=== PATIENT | male | born 1970 | race Caucasian/White ===

== ENCOUNTER → 2020-09-14 | Outpatient (CLI) | payer MEDICARE ==
--- NOTE | 2020-09-14 14:41 | CT ---
EXAMINATION TYPE: CT angio chest DATE OF EXAM: 09/14/2020 COMPARISON: None HISTORY: H/O thoracic aneurysm. CT DLP: 1040.90 mGycm CONTRAST: CTA thoracic aorta with 3-D reconstruction is performed and with IV Contrast, patient injected with 1 00ml mL of Isovue 370. Contrast CTA of the thoracic aorta was performed from the lung apex through the upper abdomen. 3D re construction imaging obtained at a separate workstation. CT Chest: THORACIC AORTA: Ascending thoracic aortic aneurysm measuring 4.2 cm AP dimension. The remainder of th e thoracic aorta including the aortic arch and descending thoracic aortic components are of normal ca liber. Mild atheromatous changes seen. There is no evidence for dissection or periaortic collection. LUNGS: The lungs are clear and free of infiltrate or atelectasis. No pulmonary nodule or mass is det ected. No pleural effusion or CT evidence of interstitial lung disease. MEDIASTINUM: No evidence for mediastinal hematoma. The heart is not enlarged. No evidence for med iastinal mass or adenopathy. HILAR STRUCTURES: No evidence for mass. No hilar adenopathy is appreciated. OTHER: No significant abnormality. IMPRESSION- Uncomplicated ascending thoracic aortic aneurysm.
== END | disposition home or self-care (01) ==
LOC: RADCTMAIN 13:33
PROVIDERS: ATTEND Family Medicine
DX: I71.2 Thoracic aortic aneurysm, without rupture (principal)
CPT/HCPCS: 71275; Q9967

== ENCOUNTER 2022-12-11 01:00 | Inpatient (IN) | payer MEDICARE ==
[2022-12-11] MEDS ORDERED: SODIUM CHLORIDE 0.9% 1,000 ML IV STA ×3 (01:25→03:23)
[2022-12-11 01:31] LABS: Glucose,Whole Blood 128 mg/dL (70-110)
--- NOTE | 2022-12-11 01:31 | ED ---
Neuro HPI - General Chief Complaint: Neuro Symptoms/Deficit Stated Complaint: Chest pain, Left side weakness Time Seen by Provider: 12/11/22 01:14 Source: patient, RN notes reviewed, old records reviewed Mode of arrival: wheelchair Limitations: altered mental status - History of Present Illness Is the patient presenting with stroke symptoms?: Yes Onset/Timin -: hour(s) Initial Comments: This is a 52-year-old male to the emergency department for evaluation. Family is at bedside helping with presentation of history of present illness the patient around 8:00 was having some significant diaphoresis when they were over family members house. Symptoms persisted and patient drove home patient states he got home was playing a video game on his phone and began to become very dizzy and felt use, pass out when he laid down. This brought patient to come to the emergency department and here in the ER is having difficulty with his speech and explaining his symptoms but he does not feel well. Patient does have history of valve replacement high blood pressure high cholesterol, patient also has history of aortic aneurysm Location: speech, dysarthria History of same: No Place: home Severity: mild Quality: weak Improves With: none Worsens With: none On Anticoagulants: Yes - Related Data Home Medications: Home Medications Medication Instructions Recorded Confirmed Sertraline [Zoloft] 200 mg PO DAILY@1800 12/11/22 12/11/22 Simvastatin [Zocor] 40 mg PO DAILY@1800 12/11/22 12/11/22 Previous Rx's Medication Instructions Recorded Aspirin 81 mg PO DAILY #30 tab 12/16/22 Metoprolol Tartrate [Lopressor] 25 mg PO BID-W/MEALS #60 tab 12/16/22 Warfarin [Coumadin] 1 mg PO DAILY #30 tablet 12/16/22 Warfarin [Coumadin] 10 mg PO DAILY@1800 #30 tab 12/16/22 lisinopriL [Zestril] 20 mg PO DAILY #30 tab 12/16/22 Allergies/Adverse Reactions: Allergies Allergy/AdvReac Type Severity Reaction Status Date / Time Penicillins Allergy Unknown Verified 12/11/22 07:54 Review of Systems ROS Statement: Those systems with pertinent positive or pertinent negative responses have been documented in the HPI. ROS Other: All systems not noted in ROS Statement are negative. General Exam - General Exam Comments Initial Comments: Diaphoretic Limitations: altered mental status, physical limitation General appearance: alert, in no apparent distress, anxious, lethargic, in d istress Head exam: Present: atraumatic, normocephalic, normal inspection Eye exam: Present: normal appearance, PERRL, EOMI. Absent: scleral icterus, conjunctival injection, periorbital swelling ENT exam: Present: normal exam, mucous membranes moist Neck exam: Present: normal inspection. Absent: tenderness, meningismus, lymphadenopathy Respiratory exam: Present: normal lung sounds bilaterally. Absent: respiratory distress, wheezes, rales, rhonchi, stridor Cardiovascular Exam: Present: regular rate, normal rhythm, normal heart sounds. Absent: systolic murmur, diastolic murmur, rubs, gallop, clicks GI/Abdominal exam: Present: soft, normal bowel sounds. Absent: distended, tenderness, guarding, rebound, rigid Extremities exam: Present: normal inspection, full ROM, normal capillary refill. Absent: tenderness, pedal edema, joint swelling, calf tenderness Back exam: Present: normal inspection Neurological exam: Present: alert, oriented X3, CN II-XII intact Psychiatric exam: Present: normal affect, normal mood Skin exam: Present: warm, dry, intact, normal color. Absent: rash Stroke MDM - Lab Data Result diagrams: 12/12/22 04:38 12/12/22 04:38 Lab Results 12/11/22 12/11/22 12/11/22 Range/Units 01:23 01:29 01:29 WBC 16.2 H (3.8-10.6) k/uL RBC 5.54 (4.30-5.90) m/uL Hgb 14.6 (13.0-17.5) gm/dL Hct 44.7 (39.0-53.0) % MCV 80.6 (80.0-100.0) fL MCH 26.4 (25.0-35.0) pg MCHC 32.8 (31.0-37.0) g/dL RDW 17.1 H (11.5-15.5) % Plt Count 261 (150-450) k/uL MPV 9.9 Neutrophils % 77 % Lymphocytes % 13 % Monocytes % 7 % Eosinophils % 1 % Basophils % 1 % Neutrophils # 12.4 H (1.3-7.7) k/uL Lymphocytes # 2.0 (1.0-4.8) k/uL Monocytes # 1.2 H (0-1.0) k/uL Eosinophils # 0.2 (0-0.7) k/uL Basophils # 0.1 (0-0.2) k/uL Hypochromasia Slight Anisocytosis Slight Microcytosis Slight PT 17.7 H (9.0-12.0) sec INR 1.8 H (<1.2) APTT 26.8 (22.0-30.0) sec Sodium (137-145) mmol/L Potassium (3.5-5.1) mmol/L Chloride (98-107) mmol/L Carbon Dioxide (22-30) mmol/L Anion Gap mmol/L BUN (9-20) mg/dL Creatinine (0.66-1.25) mg/dL Est GFR (CKD-EPI)AfAm (>60 ml/min/1.73 sqM) Est GFR (CKD-EPI)NonAf (>60 ml/min/1.73 sqM) Glucose (74-99) mg/dL POC Glucose (mg/dL) 128 H (70-110) mg/dL POC Glu Firmware Test Engineer ID Gary Willis Lactic Ac Sepsis Rflx Plasma Lactic Acid Turner (0.7-2.0) mmol/L Calcium (8.4-10.2) mg/dL Phosphorus (2.5-4.5) mg/dL Magnesium (1.6-2.3) mg/dL Total Bilirubin (0.2-1.3) mg/dL AST (17-59) U/L ALT (4-49) U/L Alkaline Phosphatase (38-126) U/L Troponin I (0.000-0.034) ng/mL NT-Pro-B Natriuret Pep pg/mL Total Protein (6.3-8.2) g/dL Albumin (3.5-5.0) g/dL Influenza Type A (PCR) (Not Detectd) Influenza Type B (PCR) (Not Detectd) RSV (PCR) (Not Detectd) SARS-CoV-2 (PCR) (Not Detectd) 12/11/22 12/11/22 12/11/22 Range/Units 01:29 01:29 01:29 WBC (3.8-10.6) k/uL RBC (4.30-5.90) m/uL Hgb (13.0-17.5) gm/dL Hct (39.0-53.0) % MCV (80.0-100.0) fL MCH (25.0-35.0) pg MCHC (31.0-37.0) g/dL RDW (11.5-15.5) % Plt Count (150-450) k/uL MPV Neutrophils % % Lymphocytes % % Monocytes % % Eosinophils % % Basophils % % Neutrophils # (1.3-7.7) k/uL Lymphocytes # (1.0-4.8) k/uL Monocytes # (0-1.0) k/uL Eosinophils # (0-0.7) k/uL Basophils # (0-0.2) k/uL Hypochromasia Anisocytosis Microcytosis PT (9.0-12.0) sec INR (<1.2) APTT (22.0-30.0) sec Sodium 139 (137-145) mmol/L Potassium 4.5 (3.5-5.1) mmol/L Chloride 104 (98-107) mmol/L Carbon Dioxide 21 L (22-30) mmol/L Anion Gap 14 mmol/L BUN 34 H (9-20) mg/dL Creatinine 2.17 H (0.66-1.25) mg/dL Est GFR (CKD-EPI)AfAm 39 (>60 ml/min/1.73 sqM) Est GFR (CKD-EPI)NonAf 34 (>60 ml/min/1.73 sqM) Glucose 140 H (74-99) mg/dL POC Glucose (mg/dL) (70-110) mg/dL POC Glu Firmware Test Engineer ID Lactic Ac Sepsis Rflx Plasma Lactic Acid Turner 2.1 H* (0.7-2.0) mmol/L Calcium 9.8 (8.4-10.2) mg/dL Phosphorus 5.1 H (2.5-4.5) mg/dL Magnesium 2.0 (1.6-2.3) mg/dL Total Bilirubin 0.5 (0.2-1.3) mg/dL AST 29 (17-59) U/L ALT 22 (4-49) U/L Alkaline Phosphatase 62 (38-126) U/L Troponin I 0.021 (0.000-0.034) ng/mL NT-Pro-B Natriuret Pep 353 pg/mL Total Protein 8.3 H (6.3-8.2) g/dL Albumin 4.9 (3.5-5.0) g/dL Influenza Type A (PCR) (Not Detectd) Influenza Type B (PCR) (Not Detectd) RSV (PCR) (Not Detectd) SARS-CoV-2 (PCR) (Not Detectd) 12/11/22 12/11/22 Range/Units 03:22 04:24 WBC (3.8-10.6) k/uL RBC (4.30-5.90) m/uL Hgb (13.0-17.5) gm/dL Hct (39.0-53.0) % MCV (80.0-100.0) fL MCH (25.0-35.0) pg MCHC (31.0-37.0) g/dL RDW (11.5-15.5) % Plt Count (150-450) k/uL MPV Neutrophils % % Lymphocytes % % Monocytes % % Eosinophils % % Basophils % % Neutrophils # (1.3-7.7) k/uL Lymphocytes # (1.0-4.8) k/uL Monocytes # (0-1.0) k/uL Eosinophils # (0-0.7) k/uL Basophils # (0-0.2) k/uL Hypochromasia Anisocytosis Microcytosis PT (9.0-12.0) sec INR (<1.2) APTT (22.0-30.0) sec Sodium (137-145) mmol/L Potassium (3.5-5.1) mmol/L Chloride (98-107) mmol/L Carbon Dioxide (22-30) mmol/L Anion Gap mmol/L BUN (9-20) mg/dL Creatinine (0.66-1.25) mg/dL Est GFR (CKD-EPI)AfAm (>60 ml/min/1.73 sqM) Est GFR (CKD-EPI)NonAf (>60 ml/min/1.73 sqM) Glucose (74-99) mg/dL POC Glucose (mg/dL) (70-110) mg/dL POC Glu Firmware Test Engineer ID Lactic Ac Sepsis Rflx Y Plasma Lactic Acid Turner (0.7-2.0) mmol/L Calcium (8.4-10.2) mg/dL Phosphorus (2.5-4.5) mg/dL Magnesium (1.6-2.3) mg/dL Total Bilirubin (0.2-1.3) mg/dL AST (17-59) U/L ALT (4-49) U/L Alkaline Phosphatase (38-126) U/L Troponin I (0.000-0.034) ng/mL NT-Pro-B Natriuret Pep pg/mL Total Protein (6.3-8.2) g/dL Albumin (3.5-5.0) g/dL Influenza Type A (PCR) Not Detected (Not Detectd) Influenza Type B (PCR) Not Detected (Not Detectd) RSV (PCR) Not Detected (Not Detectd) SARS-CoV-2 (PCR) Not Detected (Not Detectd) - NIH Stroke Scale 1a. Level of Consciousness: (0) alert 1b. LOC Questions: (0) answers correctly 1c. LOC Commands: (0) performs tasks correctly 2. Best Gaze: (0) normal 3. Visual: (0) no visual loss 4. Facial Palsy: (0) normal symmetrical movement 5a. Motor Arm Left: (0) no drift 5b. Motor Arm Right: (0) no drift 6a. Motor Leg Left: (0) no drift 6b. Motor Leg Right: (0) no drift 7. Limb Ataxia: (0) absent 8. Sensory: (0) normal 9. Best Language: (1) mild/moderate aphasia 10. Dysarthria: (1) mild/moderate dysarthria 11. Extinction/Inattention: (0) no abnormality - Thrombolytic Inclusion/Exclusion Thrombolytic Inclusion Criteria: Symptom Onset < 4.5 h - Medical Decision Making 52 Male to the emergency department for evaluation of a near syncopal event feels dizzy lightheaded with some mild slurred speech. Patient had normal imaging here in the ER and symptoms are significantly improved with aggressive fluid resuscitation. Patient states he still feels weak but improved, difficult to explain symptoms for the patient but denying any headache chest pain shortness breath or abdominal pain. Patient be admitted for continued observation, monitoring of troponin vital signs - Radiology Data Radiology results: report reviewed (CT brain CT had neck with CT angios chest or on negative for acute disease), image reviewed - EKG Data -: EKG Interpreted by Me (EKG is sinus 80 TX 191 QRS 101 QTC 377) EKG shows normal: sinus rhythm (EKG sinus bradycardia 59 TX 267 QRS 106 QTc 401) Past Medical History Past Medical History: GERD/Reflux, Hyperlipidemia, Hypertension Additional Past Medical History / Comment(s): DJD History of Any Multi-Drug Resistant Organisms: None Reported Past Surgical History: Adenoidectomy, Joint Replacement, Orthopedic Surgery Additional Past Surgical History / Comment(s): 09/17/15 Total L hip arthroplasty with cell saver. Other surgical HX: AORTIC VALVE REPLACEMENT, RT KNEE ARTHROSCOPY Past Anesthesia/Blood Transfusion Reactions: No Reported Reaction Past Psychological History: Anxiety, Depression Past Alcohol Use History: None Reported Past Drug Use History: None Reported - Past Family History Father Family Medical History: Diabetes Mellitus Additional Family Medical History / Comment(s): Father is 79 yrs old. Mother Family Medical History: Renal Disease Additional Family Medical History / Comment(s): Mother has a AICD. She is 78yrs old. Course Vital Signs 12/11/22 12/11/22 12/11/22 01:02 01:15 01:30 Temperature 98.0 F Pulse Rate 85 61 59 L Pulse Rate [ Commercial Construction Project Manager ] Respiratory 18 20 18 Rate Blood Pressure 96/60 71/35 68/43 Blood Pressure [Left Arm] O2 Sat by Pulse 97 96 96 Oximetry 12/11/22 12/11/22 12/11/22 01:37 01:44 01:45 Temperature Pulse Rate 54 L 59 L Pulse Rate [ Commercial Construction Project Manager ] Respiratory 18 14 14 Rate Blood Pressure 83/47 92/53 Blood Pressure [Left Arm] O2 Sat by Pulse 100 100 Oximetry 12/11/22 12/11/22 12/11/22 01:51 02:00 02:15 Temperature Pulse Rate 58 L 61 62 Pulse Rate [ Commercial Construction Project Manager ] Respiratory 14 18 18 Rate Blood Pressure 91/54 92/59 91/52 Blood Pressure [Left Arm] O2 Sat by Pulse 99 96 96 Oximetry 12/11/22 12/11/22 12/11/22 02:19 02:35 04:00 Temperature Pulse Rate 69 61 56 L Pulse Rate [ Commercial Construction Project Manager ] Respiratory 17 18 16 Rate Blood Pressure 116/48 120/56 115/65 Blood Pressure [Left Arm] O2 Sat by Pulse 100 100 97 Oximetry 12/11/22 12/11/22 12/11/22 05:00 06:00 07:30 Temperature Pulse Rate 56 L 56 L 62 Pulse Rate [ Commercial Construction Project Manager ] Respiratory 16 16 18 Rate Blood Pressure 122/75 112/66 113/59 Blood Pressure [Left Arm] O2 Sat by Pulse 97 97 96 Oximetry 12/11/22 12/11/22 12/11/22 13:04 14:48 15:39 Temperature 98.0 F Pulse Rate 58 L 64 Pulse Rate [ Commercial Construction Project Manager ] Respiratory 20 16 18 Rate Blood Pressure 103/62 111/67 Blood Pressure [Left Arm] O2 Sat by Pulse 98 99 Oximetry 12/11/22 12/11/22 12/11/22 17:40 18:14 19:28 Temperature 97.9 F Pulse Rate 65 72 67 Pulse Rate [ Commercial Construction Project Manager ] Respiratory 16 18 18 Rate Blood Pressure 123/70 115/88 106/54 Blood Pressure [Left Arm] O2 Sat by Pulse 98 96 Oximetry 12/11/22 12/12/22 12/12/22 21:00 00:00 04:00 Temperature 97.9 F 98.7 F 98.1 F Pulse Rate 64 85 62 Pulse Rate [ Commercial Construction Project Manager ] Respiratory 20 18 26 H Rate Blood Pressure 109/57 136/83 120/59 Blood Pressure [Left Arm] O2 Sat by Pulse 96 96 98 Oximetry 12/12/22 12/12/22 08:00 12:00 Temperature 98.6 F 97.9 F Pulse Rate Pulse Rate [ 73 57 L Commercial Construction Project Manager ] Respiratory 20 16 Rate Blood Pressure Blood Pressure 156/72 150/85 [Left Arm] O2 Sat by Pulse 98 96 Oximetry - Reevaluation(s) Reevaluation #1: 12/11/22 04:50 Medical record is reviewed 12/11/22 04:50 Code stroke prior to arrival 12/11/22 04:51 Patient is on Coumadin no TPA Reevaluation #2: 12/11/22 04:51 Patient symptoms continue to improve here in the ER blood pressure and heart rate Reevaluation #3: 12/11/22 04:51 Patient informed of results and questions answered Reevaluation #4: 12/11/22 04:51 Was pt. sent in by a medical professional or institution (, PA, MECHANICAL DESIGN DRAFTER, urgent care, hospital, or group home...) When possible be specific @ -no Did you speak to anyone other than the patient for history (EMS, parent, family, police, friend...)? What history was obtained from this source @ -no Did you review nursing and triage notes (agree or disagree)? Why? @ -agree Are old charts reviewed (outside hosp., previous admission, EMS record, old EKG, old radiological studies, urgent care reports/EKG's, group home records)? Report findings @ -yes Differential Diagnosis (chest pain, altered mental status, abdominal pain women, abdominal pain men, vaginal bleeding, weakness, fever, dyspnea, syncope, headache, dizziness, GI bleed, back pain, seizure, CVA, palpatations, mental he alth, musculoskeletal)? @ -prior EKG interpreted by me (3pts min.). @ -yes X-rays interpreted by me (1pt min.). @ -yes CT interpreted by me (1pt min.). @ -yes U/S interpreted by me (1pt. min.). @ -no What testing was considered but not performed or refused? (CT, X-rays, U/S, labs)? Why? @ -none What meds were considered but not given or refused? Why? @ -none Did you discuss the management of the patient with other professionals (professionals i.e. , PA, MECHANICAL DESIGN DRAFTER, lab, RT, psych nurse, older adult social work specialist, stud driver, teacher, front desk officer, casework specialist)? Give summary @ -no Was smoking cessation discussed for >3mins.? @ -no Was critical care preformed (if so, how long)? @ -no Were there social determinants of health that impacted care today? How? (Homelessness, low income, unemployed, alcoholism, drug addiction, transportation, low edu. Level, literacy, decrease access to med. care, usp, rehab)? @ -none Was there de-escalation of care discussed even if they declined (Discuss DNR or withdrawal of care, Hospice)? DNR status @ -no What co-morbidities impacted this encounter? (DM, HTN, Smoking, COPD, CAD, Cancer, CVA, ARF, Chemo, Hep., AIDS, mental health diagnosis, sleep apnea, morb id obesity)? @ -none Was patient admitted / discharged? Hospital course, mention meds given and rou te, prescriptions, significant lab abnormalities, going to OR and other pertinent info. @ - 52 Male to the emergency department for evaluation of a near syncopal event feels dizzy lightheaded with some mild slurred speech. Patient had normal imaging here in the ER and symptoms are significantly improved with aggressive fluid resuscitation. Patient states he still feels weak but improved, difficult to explain symptoms for the patient but denying any headache chest pain shortness breath or abdominal pain. Patient be admitted for continued observation, monitoring of troponin vital signs Admitted Undiagnosed new problem with uncertain prognosis? @ -no Drug Therapy requiring intensive monitoring for toxicity (Heparin, Nitro, Insulin, Cardizem)? @ -no Were any procedures done? @ -no Diagnosis/symptom? @ -Altered mental status, hypotension Acute, or Chronic, or Acute on Chronic? @ -Acute Uncomplicated (without systemic symptoms) or Complicated (systemic symptoms)? @ -Complicated Side effects of treatment? @ -no Exacerbation, Progression, or Severe Exacerbation? @ -exacerbation Poses a threat to life or bodily function? How? (Chest pain, USA, MN, pneumonia, PE, COPD, DKA, ARF, appy, cholecystitis, CVA, Diverticulitis, Homicidal, Suicidal, threat to staff... and all critical care pts) @ -yes severe hypotension Reevaluation #5: 12/11/22 04:51 Differential Syncope: Valvular disease, hypertrophic cardiomyopathy, pulmonary embolism, tamponade, tachycardia, bradycardia, MN, hypovolemia, hemorrhage, dissection, anemia, intracranial hemorrhage, seizure, hypoglycemia, carbon monoxide poisoning, this is not meant to be an all-inclusive list. - Consultations Consultation #1: [place] with sound who agrees to admit the patient Critical Care Time Critical Care Time: Yes Total Critical Care Time: 31 Disposition Clinical Impression: Weakness, Bradycardia, Hypotension, Near syncope Disposition: ADMITTED IP TO THIS HOSP Condition: Stable Is patient prescribed a controlled substance at d/c from ED?: No Time of Disposition: 04:45
[2022-12-11] MEDS ORDERED: NALOXONE 0.4 MG/ML 1 ML VIAL IVP STA (01:40)
[2022-12-11 01:44] LABS: Anisocytosis Slight; Basophils # (A) 0.1 k/uL (0-0.2); Basophils % (A) 1 %; Eosinophils # (A) 0.2 k/uL (0-0.7); Eosinophils % (A) 1 %; HCT 44.7 % (39.0-53.0); HGB 14.6 gm/dL (13.0-17.5); Hypochromasia Slight; Lymphocytes % (A) 13 %; MCH 26.4 pg (25.0-35.0); MCHC 32.8 g/dL (31.0-37.0); MCV 80.6 fL (80.0-100.0); Mean Platelet Volume 9.9; Microcytosis Slight; Monocytes # (A) 1.2 k/uL (0-1.0); Monocytes % (A) 7 %; Neutrophils # (A) 12.4 k/uL (1.3-7.7); Neutrophils % (A) 77 %; Platelet Count 261 k/uL (150-450); RBC 5.54 m/uL (4.30-5.90); RDW 17.1 % (11.5-15.5); WBC 16.2 k/uL (3.8-10.6)
[2022-12-11 01:52] LABS: INR 1.8 (<1.2); Partial Thromboplastin Time 26.8 sec (22.0-30.0); Prothrombin Time 17.7 sec (9.0-12.0)
--- NOTE | 2022-12-11 02:31 | CT ---
EXAM: CT Angiography Head With Intravenous Contrast CLINICAL HISTORY: ITS.REASON CT Reason: cva TECHNIQUE: Axial computed tomographic angiography images of the head with intravenous contrast. CTDI is 48.8 mGy and DLP is 1162 mGy-cm. This CT exam was performed using one or more of the following dose reduction techniques: automated exposure control, adjustment of the mA and/or kV according to patient size, and/or use of iterative reconstruction technique. MIP reconstructed images were created and reviewed. COMPARISON: No relevant prior studies available. FINDINGS: The dural venous sinuses are patent. Right internal carotid artery: No acute findings. Intracranial segment is patent with no significant stenosis. No aneurysm. Right anterior cerebral artery: Unremarkable. No occlusion or significant stenosis. No aneurysm. Right middle cerebral artery: Unremarkable. No occlusion or significant stenosis. No aneurysm. Right posterior cerebral artery: Unremarkable. No occlusion or significant stenosis. No aneurysm. Right vertebral artery: Unremarkable as visualized. Left internal carotid artery: No acute findings. Intracranial segment is patent with no significant stenosis. No aneurysm. Left anterior cerebral artery: Unremarkable. No occlusion or significant stenosis. No aneurysm. Left middle cerebral artery: Unremarkable. No occlusion or significant stenosis. No aneurysm. Left posterior cerebral artery: Unremarkable. No occlusion or significant stenosis. No aneurysm. Left vertebral artery: Unremarkable as visualized. Basilar artery: Unremarkable. No occlusion or significant stenosis. No aneurysm. IMPRESSION: Negative CT angiogram of the head. EXAM: CT Neck With Intravenous Contrast CLINICAL HISTORY: ITS.REASON CT Reason: cva TECHNIQUE: Routine carotid CT protocol was performed with intravenous contrast. NASCET criteria using the distal ICAs for comparison were used for evaluation of stenoses. CTDI is 19.7 mGy and DLP is 926 mGy-cm. This CT exam was performed using one or more of the following dose reduction techniques: automated exposure control, adjustment of the mA and/or kV according to patient size, and/or use of iterative reconstruction technique. COMPARISON: None. FINDINGS: VASCULATURE: The dural venous sinuses are widely patent. Right common carotid artery: Unremarkable. No occlusion or significant stenosis. No dissection. Right internal carotid artery: Unremarkable. Extracranial segment is patent with no occlusion or significant stenosis. No dissection. Right external carotid artery: Unremarkable. No occlusion. Right vertebral artery: Unremarkable. No occlusion or significant stenosis. No dissection. Left common carotid artery: Unremarkable. No occlusion or significant stenosis. No dissection. Left internal carotid artery: Unremarkable. Extracranial segment is patent with no occlusion or significant stenosis. No dissection. Left external carotid artery: Unremarkable. No occlusion. Left vertebral artery: Unremarkable. No occlusion or significant stenosis. No dissection. NECK: Bones/joints: Status post median sternotomy. Soft tissues: Status post CABG. Prominent cervical lymph nodes. Prominent hilar lymph nodes. Lung apices: Finds concern for bronchitis, which may be of infectious or inflammatory etiologies. CAROTID STENOSIS REFERENCE USING NASCET CRITERIA: % ICA stenosis = (1 - narrowest ICA diameter/diameter of distal cervical ICA) x 100. Mild - <50% stenosis. Moderate - 50-69% stenosis. Severe - 70-94% stenosis. Near occlusion - 95-99% stenosis. Occluded - 100% stenosis. IMPRESSION: Negative CTA neck.
--- NOTE | 2022-12-11 02:34 | CT ---
EXAM: CT Head Without Intravenous Contrast CLINICAL HISTORY: ITS.REASON CT Reason: weakness TECHNIQUE: Axial computed tomography images of the head/brain without intravenous contrast. CTDI is 48.8 mGy and DLP is 1162 mGy-cm. This CT exam was performed using one or more of the following dose reduction techniques: automated exposure control, adjustment of the mA and/or kV according to patient size, and/or use of iterative reconstruction technique. COMPARISON: No relevant prior studies available. FINDINGS: Brain: Unremarkable. No hemorrhage. No significant white matter disease. No edema. Ventricles: Unremarkable. No ventriculomegaly. Bones/joints: Unremarkable. No acute fracture. Soft tissues: Unremarkable. Sinuses: Chronic ethmoid sinusitis. No acute sinusitis. Mastoid air cells: Unremarkable as visualized. No mastoid effusion. IMPRESSION: No evidence of acute intracranial pathology.
--- NOTE | 2022-12-11 02:41 | CT ---
EXAM: CT Angiography Chest With Intravenous Contrast CLINICAL HISTORY: ITS.REASON CT Reason: dissection TECHNIQUE: Axial computed tomographic angiography images of the chest with intravenous contrast. CTDI is 44.9 mGy and DLP is 1711.8 mGy-cm. This CT exam was performed using one or more of the following dose reduction techniques: automated exposure control, adjustment of the mA and/or kV according to patient size, and/or use of iterative reconstruction technique. MIP reconstructed images were created and reviewed. COMPARISON: No relevant prior studies available. FINDINGS: Pulmonary arteries: Unremarkable. No pulmonary embolism. Aorta: Ascending aortic aneurysm measuring 41 mm in diameter. Lungs: Mild to moderate peribronchial thickening of the central and peripheral bronchi. No mass. No consolidation. Pleural space: Unremarkable. No significant effusion. No pneumothorax. Heart: Aortic valve replacement. Cardiomegaly. No significant pericardial effusion. No evidence of RV dysfunction. Bones/joints: Status post median sternotomy. No acute fracture. No dislocation. Soft tissues: Unremarkable. Lymph nodes: Prominent mediastinal and hilar lymph nodes. IMPRESSION: Ascending aortic aneurysm without evidence of dissection, status post aortic valve replacement. Findings concern for bronchitis, which may be due to infectious or inflammatory etiologies. No consolidation. EXAM: CT Angiography Abdomen and Pelvis With Intravenous Contrast CLINICAL HISTORY: ITS.REASON CT Reason: dissection TECHNIQUE: Axial computed tomographic angiography images of the abdomen and pelvis with intravenous contrast. CTDI is 44.9 mGy and DLP is 1711.8 mGy-cm. This CT exam was performed using one or more of the following dose reduction techniques: automated exposure control, adjustment of the mA and/or kV according to patient size, and/or use of iterative reconstruction technique. MIP reconstructed images were created and reviewed. COMPARISON: No relevant prior studies available. FINDINGS: VASCULATURE: Aorta: No acute findings. No abdominal aortic aneurysm. No dissection. Celiac trunk and mesenteric arteries: No acute findings. No occlusion or significant stenosis. Renal arteries: No acute findings. No occlusion or significant stenosis. Right iliac arteries: No acute findings. No occlusion or significant stenosis. Left iliac arteries: No acute findings. No occlusion or significant stenosis. Lung bases: Unremarkable. No mass. No consolidation. ABDOMEN: Liver: Hepatic steatosis.. No mass. Gallbladder and bile ducts: Cholelithiasis without evidence of cholecystitis.. No ductal dilation. Pancreas: Unremarkable. No ductal dilation. No mass. Spleen: Unremarkable. No splenomegaly. Adrenals: Unremarkable. No mass. Kidneys and ureters: Unremarkable. No hydronephrosis. No solid mass. Stomach and bowel: Unremarkable. No obstruction. No mucosal thickening. PELVIS: Appendix: No findings to suggest acute appendicitis. Bladder: Unremarkable. No mass. Reproductive: Unremarkable as visualized. ABDOMEN, PELVIS and LOWER EXTREMITIES: Intraperitoneal space: Unremarkable. No significant fluid collection. No free air. Bones/joints: Status post left hip arthroplasty. No acute fracture. No dislocation. Soft tissues: Unremarkable. Lymph nodes: Unremarkable. No enlarged lymph nodes. IMPRESSION: Negative CT angiogram of the abdomen and pelvis. Hepatic steatosis. Cholelithiasis without evidence of cholecystitis.
[2022-12-11 02:58] LABS: ALT 22 U/L (4-49); AST 29 U/L (17-59); African American GFR (CKD) 39 (>60 ml/min/1.73 sqM); Albumin 4.9 g/dL (3.5-5.0); Alkaline Phosphatase 62 U/L (38-126); Anion Gap 14 mmol/L; Blood Urea Nitrogen 34 mg/dL (9-20); Calcium 9.8 mg/dL (8.4-10.2); Carbon Dioxide 21 mmol/L (22-30); Chloride 104 mmol/L (98-107); Glucose 140 mg/dL (74-99); Non-African American GFR(CKD) 34 (>60 ml/min/1.73 sqM); Phosphorus 5.1 mg/dL (2.5-4.5); Potassium 4.5 mmol/L (3.5-5.1); Sodium 139 mmol/L (137-145); Total Bilirubin 0.5 mg/dL (0.2-1.3); Total Protein 8.3 g/dL (6.3-8.2)
[2022-12-11 03:07] LABS: NT-Pro-B-Type Natriuretic Pept 353 pg/mL
[2022-12-11] MEDS ORDERED: NALOXONE 0.4 MG/ML 1 ML VIAL IV PRN (05:28)
[2022-12-11] MEDS ORDERED: ONDANSETRON 4 MG/2 ML VIAL IVP PRN (05:28)
[2022-12-11] MEDS ORDERED: MORPHINE SULFATE 4 MG/ML SYRINGE IV PRN (05:28)
--- NOTE | 2022-12-11 05:30 | P.HPIM ---
History of Present Illness H&P Date: 12/11/22 Patient is a 52-year-old male with a PMH of thoracic aortic aneurysm, status post aortic valve replacement on Lovenox, hypertension, and hyperlipidemia who presents to the emergency room for generalized weakness, slurred speech, and diaphoresis. The patient reports that he was in his usual state of health until he went to some family members house earlier in the evening with a noted that he was sweating. The patient then proceeded to go home but later in the night developed slurring of his speech, generalized fatigue, and blurry vision. He subsequently decided to come to the emergency room. Code stroke was activated upon arrival. Upon arrival, the patient's vitals were 96/60 with pulse 85 and SpO2 97% on room air with temperature 98.0F. The patient's subsequently vitals were BP 68/[address] angiogram thoracic aorta revealed an ascending aortic aneurysm 41 mm without dissection or rupture. CT angiogram abdomen and pelvis revealed hepatic steatosis but otherwise unremarkable. CT brain was unremarkable. EKG revealed sinus rhythm at 80 bpm with T-wave inversion in leads V4 to V6 as well as 2, 3, and aVF. Laboratory evaluation was remarkable for leukocytosis of 16. 2, lactic acid 2.1, BUN 2034, creatinine 2.17 (previously 0.8), At time of interview, the patient reports feeling essentially at his baseline aside from mild generalized fatigue. Denied experiencing chest discomfort, cough, shortness of breath, fever, chills, nausea, vomiting, abdominal pain, diarrhea. ED documentation reviewed and case discussed with ED provider. Review of systems: Pertinent positives and negatives as discussed in HPI, a complete review of systems was performed and all other systems are negative. Physical examination: Vital signs reviewed General: non toxic, no distress, appears at stated age, obese Derm: no unusual rashes/lesions, warm Head: atraumatic, normocephalic, symmetric Eyes: EOMI, no lid lag, anicteric sclera, pupils equal round reactive to light ENT: Nose and ears atraumatic Neck: No cervical lymphadenopathy, trachea midline, supple Mouth: no lip lesion, mucus membranes moist Cardiovascular: S1S2 reg, systolic murmur appreciated, positive dorsalis pedis pulse bilateral, no edema Lungs: CTA bilateral, no rhonchi, no rales, no accessory muscle use Abdominal: soft, nontender to palpation, no guarding Ext: muscle strength 5 out of 5 in all 4 extremities grossly, no gross muscle atrophy, no contractures, Neuro: CN II-XI grossly intact, no gross focal neuro deficits Psych: Alert, oriented, appropriate affect Assessment: SIRS, unclear etiology Lactic acidosis ALO Imaging: CT angiogram thoracic aorta revealed an ascending aortic aneurysm 41 mm without dissection or rupture. CT angiogram abdomen and pelvis revealed hepatic steatosis but otherwise unremarkable. CT brain was unremarkable. EKG revealed sinus rhythm at 80 bpm with T-wave inversion in leads V4 to V6 as well as 2, 3, and aVF. Data Review: Laboratory evaluation was remarkable for leukocytosis of 16.2, lactic acid 2.1, BUN 2034, creatinine 2.17 (previously 0.8), Plan: Check a.m. cortisol and thyroid studies Order blood cultures Continue with IV fluids and monitor lactate for resolution Cardiac monitoring DVT prophylaxis: Heparin subq The patient is admitted with an anticipated greater than 2 midnight stay for evaluation of SIRS CODE STATUS: Full Code Discussed with: Patient Anticipated discharge place: Home Past Medical History Past Medical History: GERD/Reflux, Hyperlipidemia, Hypertension Additional Past Medical History / Comment(s): DJD History of Any Multi-Drug Resistant Organisms: None Reported Past Surgical History: Adenoidectomy, Joint Replacement, Orthopedic Surgery Additional Past Surgical History / Comment(s): 09/17/15 Total L hip arthroplasty with cell saver. Other surgical HX: AORTIC VALVE REPLACEMENT, RT KNEE ARTHROSCOPY Past Anesthesia/Blood Transfusion Reactions: No Reported Reaction Past Psychological History: Anxiety, Depression Past Alcohol Use History: None Reported Past Drug Use History: None Reported - Past Family History Father Family Medical History: Diabetes Mellitus Additional Family Medical History / Comment(s): Father is 79 yrs old. Mother Family Medical History: Renal Disease Additional Family Medical History / Comment(s): Mother has a AICD. She is 78yrs old. Medications and Allergies Home Medications Medication Instructions Recorded Confirmed Type Enalapril [Vasotec] 20 mg PO DAILY 09/09/15 09/17/15 History Metoprolol Tartrate [Lopressor] 100 mg PO BID 09/09/15 09/17/15 History Omeprazole [PriLOSEC] 20 mg PO DAILY 09/09/15 09/17/15 History Simvastatin [Zocor] 20 mg PO DAILY 09/09/15 09/17/15 History Warfarin [Coumadin] 10 mg PO DAILY 09/09/15 09/17/15 History buPROPion [Wellbutrin] 75 mg PO BID 09/09/15 09/17/15 History hydroCHLOROthiazide 25 mg PO DAILY 09/09/15 09/17/15 History Docusate [Colace] 100 mg PO BID #60 capsule 09/17/15 Rx HYDROcodone/APAP 10-325MG [Kohler 1 tab PO Q6H PRN 09/17/15 09/17/15 History 10-325] Enoxaparin [Lovenox] 150 mg SQ Q12HR #0 09/20/15 09/17/15 Rx HYDROcodone/APAP 10-325MG [Kohler 2 tab PO Q6H PRN #90 tab 09/20/15 Rx 10-325] Allergies Allergy/AdvReac Type Severity Reaction Status Date / Time Penicillins Allergy Unknown Verified 12/11/22 01:08 Physical Exam Vitals: Vital Signs Temp Pulse Resp BP Pulse Ox 12/11/22 05:00 56 L 16 122/75 97 12/11/22 04:00 56 L 16 115/65 97 12/11/22 02:35 61 18 120/56 100 12/11/22 02:19 69 17 116/48 100 12/11/22 02:15 62 18 91/52 96 12/11/22 02:00 61 18 92/59 96 12/11/22 01:51 58 L 14 91/54 99 12/11/22 01:45 59 L 14 92/53 100 12/11/22 01:44 14 12/11/22 01:37 54 L 18 83/47 100 12/11/22 01:30 59 L 18 68/43 96 12/11/22 01:15 61 20 71/35 96 12/11/22 01:02 98.0 F 85 18 96/60 97 Intake and Output 12/10/22 12/10/22 12/11/22 14:59 22:59 06:59 Other: Weight 108.862 kg Results CBC & Chem 7: 12/11/22 01:29 12/11/22 01:29 Labs: Abnormal Lab Results - Last 24 Hours (Table) 12/11/22 12/11/22 12/11/22 Range/Units 01:23 01:29 01:29 WBC 16.2 H (3.8-10.6) k/uL RDW 17.1 H (11.5-15.5) % Neutrophils # 12.4 H (1.3-7.7) k/uL Monocytes # 1.2 H (0-1.0) k/uL PT 17.7 H (9.0-12.0) sec INR 1.8 H (<1.2) Carbon Dioxide (22-30) mmol/L BUN (9-20) mg/dL Creatinine (0.66-1.25) mg/dL Glucose (74-99) mg/dL POC Glucose (mg/dL) 128 H (70-110) mg/dL Plasma Lactic Acid Turner (0.7-2.0) mmol/L Phosphorus (2.5-4.5) mg/dL Total Protein (6.3-8.2) g/dL 12/11/22 12/11/22 Range/Units 01:29 01:29 WBC (3.8-10.6) k/uL RDW (11.5-15.5) % Neutrophils # (1.3-7.7) k/uL Monocytes # (0-1.0) k/uL PT (9.0-12.0) sec INR (<1.2) Carbon Dioxide 21 L (22-30) mmol/L BUN 34 H (9-20) mg/dL Creatinine 2.17 H (0.66-1.25) mg/dL Glucose 140 H (74-99) mg/dL POC Glucose (mg/dL) (70-110) mg/dL Plasma Lactic Acid Turner 2.1 H* (0.7-2.0) mmol/L Phosphorus 5.1 H (2.5-4.5) mg/dL Total Protein 8.3 H (6.3-8.2) g/dL
--- NOTE | 2022-12-11 05:52 | XR ---
EXAM: XR Chest, 1 View CLINICAL HISTORY: ITS.REASON XR Reason: weak TECHNIQUE: Frontal view of the chest. COMPARISON: Comparison made to prior chest x-ray from September 20, 2015. FINDINGS: Lungs: Mild to moderate peribronchial thickening of the central bronchi. No consolidation. Pleural space: Unremarkable. No pneumothorax. Heart: Unremarkable. No cardiomegaly. Mediastinum: Unremarkable. Bones/joints: Status post median sternotomy. IMPRESSION: Findings concern for bronchitis, which may be of infectious or inflammatory etiologies. No consolidation.
[2022-12-11] MEDS: SODIUM CHLORIDE 0.9% 1,000 ML IV SCH ×3 (06:01→20:41)
[2022-12-11 06:18] LABS: Anisocytosis Slight; HGB 12.3 gm/dL (13.0-17.5); Hypochromasia Marked; MCH 26.8 pg (25.0-35.0); MCHC 32.4 g/dL (31.0-37.0); MCV 82.6 fL (80.0-100.0); Mean Platelet Volume 10.1; Platelet Count 174 k/uL (150-450); RBC 4.59 m/uL (4.30-5.90); WBC 15.3 k/uL (3.8-10.6)
[2022-12-11 06:38] LABS: ALT 19 U/L (4-49); AST 25 U/L (17-59); African American GFR (CKD) 52 (>60 ml/min/1.73 sqM); Albumin 4.2 g/dL (3.5-5.0); Alkaline Phosphatase 58 U/L (38-126); Anion Gap 10 mmol/L; Blood Urea Nitrogen 34 mg/dL (9-20); Calcium 8.8 mg/dL (8.4-10.2); Carbon Dioxide 21 mmol/L (22-30); Chloride 107 mmol/L (98-107); Glucose 129 mg/dL (74-99); Non-African American GFR(CKD) 45 (>60 ml/min/1.73 sqM); Potassium 3.9 mmol/L (3.5-5.1); Sodium 138 mmol/L (137-145); Total Bilirubin 0.3 mg/dL (0.2-1.3)
[2022-12-11] MEDS ORDERED: HEPARIN SODIUM,PORCINE/PF 5,000 UNIT/0.5 ML SYRINGE SQ SCH (08:00)
--- NOTE | 2022-12-11 08:30 | P.CRDCN ---
History of Present Illness Consult date: 12/11/22 Consult reason: other (tachycardia) History of present illness: 52-year-old gentleman with history of I aortic valve and root replacement who is on long-term Coumadin presented to Hospital with symptoms of not feeling well dizziness and transient inability to speak and unstable gait. They thought he may have had a TIA and he was brought in as a "stroke. INR is subtherapeutic at 1.8. At the time of my evaluation this morning in the emergency room on his neurological symptoms have resolved. He does not have chest pain difficulty in breathing palpitations dizziness syncope. There is no history of leg edema PND or orthopnea. There is no prior history of CVA. On his initial presentation patient was hypotensive. His blood pressures dropped into the 60s. He received fluids and at the time of my evaluation his blood pressure appears normal. Is currently undergoing workup for possible adrenal insufficiency. He underwent a computed tomography scan of the chest that was negative for dissection. His aortic root is mildly dilated. He has had blood cultures. White cell count is elevated of unclear clinical significance. I will obtain a 2-D echo to assess the prosthetic valve. He is on multiple antihypertensives and probably his hypotension is iatrogenic. 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 His aortic valve was replaced in 2004. Past medical history is significant for hypertension dyslipidemia I aortic valve root replacement and Coumadin therapy . Medications at home include enalapril simvastatin Coumadin hydrochlorothiazide and metoprolol . Patient is ALLERGIC to penicillin family history is negative for premature coronary artery disease social history is significant for marijuana use. Patient states that he uses marijuana about 5 hours prior to this. There is no history of redo should use of and he denies tobacco smoking review of systems: 14 out of 14 review of systems has been performed pertinent set is documented on exam patient is comfortable at rest vital signs are stable there is a jugular venous distention carotid upstroke is normal there is no bruit chest exam reveals good air entry bilaterally heart exam reveals first and second heart sounds no gallop prosthetic valve sound is clearly abdomen is soft exam extremities did not reveal any edema pulses are palpable [employer] REP exam did not reveal focal neurological deficits labs have been reviewed. White cell count is elevated. BUN/creatinine are elevated suggestive of renal insufficiency. This could be related to hypoten anastacia. Kidney functions are improving. Assessment and plan: Hypotension elevated white cell count acute renal insufficiency status post mechanical aortic valve replacement plan: I will obtain blood cultures I will obtain a 2-D echo hold his medications further recommendations based on test results Past Medical History Past Medical History: GERD/Reflux, Hyperlipidemia, Hypertension Additional Past Medical History / Comment(s): DJD History of Any Multi-Drug Resistant Organisms: None Reported Past Surgical History: Adenoidectomy, Joint Replacement, Orthopedic Surgery Additional Past Surgical History / Comment(s): 09/17/15 Total L hip arthroplasty with cell saver. Other surgical HX: AORTIC VALVE REPLACEMENT, RT KNEE ARTHROSCOPY Past Anesthesia/Blood Transfusion Reactions: No Reported Reaction Past Psychological History: Anxiety, Depression Past Alcohol Use History: None Reported Past Drug Use History: None Reported - Past Family History Father Family Medical History: Diabetes Mellitus Additional Family Medical History / Comment(s): Father is 79 yrs old. Mother Family Medical History: Renal Disease Additional Family Medical History / Comment(s): Mother has a AICD. She is 78yrs old. Medications and Allergies Home Medications Medication Instructions Recorded Confirmed Type Enalapril [Vasotec] 20 mg PO DAILY@179909/09/15 12/11/22 History Metoprolol Tartrate [Lopressor] 100 mg PO BID-W/MEALS 09/09/15 12/11/22 History Warfarin [Coumadin] 10 mg PO DAILY@179909/09/15 12/11/22 History hydroCHLOROthiazide 25 mg PO DAILY@179909/09/15 12/11/22 History Sertraline [Zoloft] 200 mg PO DAILY@179912/11/22 12/11/22 History Simvastatin [Zocor] 40 mg PO DAILY@179912/11/22 12/11/22 History Allergies Allergy/AdvReac Type Severity Reaction Status Date / Time Penicillins Allergy Unknown Verified 12/11/22 07:54 Physical Exam Vitals: Vital Signs Temp Pulse Resp BP Pulse Ox 12/11/22 07:30 62 18 113/59 96 12/11/22 06:00 56 L 16 112/66 97 12/11/22 05:00 56 L 16 122/75 97 12/11/22 04:00 56 L 16 115/65 97 12/11/22 02:35 61 18 120/56 100 12/11/22 02:19 69 17 116/48 100 12/11/22 02:15 62 18 91/52 96 12/11/22 02:00 61 18 92/59 96 12/11/22 01:51 58 L 14 91/54 99 12/11/22 01:45 59 L 14 92/53 100 12/11/22 01:44 14 12/11/22 01:37 54 L 18 83/47 100 12/11/22 01:30 59 L 18 68/43 96 12/11/22 01:15 61 20 71/35 96 12/11/22 01:02 98.0 F 85 18 96/60 97 Intake and Output 12/10/22 12/11/22 12/11/22 22:59 06:59 14:59 Other: Weight 108.862 kg Results 12/11/22 05:46 12/11/22 05:46 Cardiac Enzymes 12/11/22 12/11/22 12/11/22 Range/Units 01:29 01:29 05:46 AST 29 (17-59) U/L Troponin I 0.021 <0.012 (0.000-0.034) ng/mL 12/11/22 Range/Units 05:46 AST 25 (17-59) U/L Troponin I (0.000-0.034) ng/mL Coagulation 12/11/22 Range/Units 01:29 PT 17.7 H (9.0-12.0) sec APTT 26.8 (22.0-30.0) sec CBC 12/11/22 12/11/22 Range/Units 01:29 05:46 WBC 16.2 H 15.3 H (3.8-10.6) k/uL RBC 5.54 4.59 (4.30-5.90) m/uL Hgb 14.6 12.3 L (13.0-17.5) gm/dL Hct 44.7 38.0 L (39.0-53.0) % Plt Count 261 174 (150-450) k/uL Comprehensive Metabolic Panel 12/11/22 12/11/22 Range/Units 01:29 05:46 Sodium 139 138 (137-145) mmol/L Potassium 4.5 3.9 (3.5-5.1) mmol/L Chloride 104 107 (98-107) mmol/L Carbon Dioxide 21 L 21 L (22-30) mmol/L BUN 34 H 34 H (9-20) mg/dL Creatinine 2.17 H 1.72 H (0.66-1.25) mg/dL Glucose 140 H 129 H (74-99) mg/dL Calcium 9.8 8.8 (8.4-10.2) mg/dL AST 29 25 (17-59) U/L ALT 22 19 (4-49) U/L Alkaline Phosphatase 62 58 (38-126) U/L Total Protein 8.3 H 7.0 (6.3-8.2) g/dL Albumin 4.9 4.2 (3.5-5.0) g/dL Current Medications Generic Name Dose Route Start Last Admin Trade Name Freq PRN Reason Stop Dose Admin Heparin Sodium (Porcine) 5,000 unit 12/11/22 08:00 12/11/22 07:30 Heparin Sodium,Porcine/Pf 5,000 Unit/0.5 Ml Syringe SQ 5,000 unit Q8HR DAYNE Administration Sodium Chloride 1,000 mls @ 130 mls/hr 12/11/22 05:30 12/11/22 06:01 Saline 0.9% IV 130 mls/hr .[id number] DAYNE Administration Morphine Sulfate 4 mg 12/11/22 05:28 Morphine Sulfate 4 Mg/Ml Syringe IV Q4HR PRN Severe Pain (Scale 7 to 10) Naloxone HCl 0.2 mg 12/11/22 05:28 Naloxone 0.4 Mg/Ml 1 Ml Vial IV Q2M PRN Opioid Reversal Ondansetron HCl 4 mg 12/11/22 05:28 Ondansetron 4 Mg/2 Ml Vial IVP Q8HR PRN Nausea And Vomiting Intake and Output 12/10/22 12/11/22 12/11/22 22:59 06:59 14:59 Other: Weight 108.862 kg 12/11/22 05:46 12/11/22 05:46 EKG Interpretations (text) EKG shows sinus tachycardia with nonspecific ST-T wave changes
[2022-12-11 08:59] LABS: Amphetamine Screen,Urine Not Detected (NotDetected); Appearance,Urine Clear (Clear); Barbiturate Screen,Urine Not Detected (NotDetected); Benzodiazepines Screen,Urine Not Detected (NotDetected); Cocaine Screen,Urine Not Detected (NotDetected); Color,Urine Light Yellow; Methadone Screen, Urine Not Detected (NotDetected); Opiate Screen,Urine Not Detected (NotDetected); Oxycodone Screen, Urine Not Detected (NotDetected); Phencyclidine Screen,Urine Not Detected (NotDetected); Specific Gravity,Urine 1.015 (1.001-1.035); Tricyclic Antidepressant,Urine Not Detected (NotDetected); Urn Cannabinoid Scrn Detected (NotDetected)
[2022-12-11 09:00] LABS: Bilirubin,Urine Negative (Negative); Blood,Urine Trace (Negative); Glucose,Urine (UA) Trace (Negative); Ketones,Urine Negative (Negative); Leukocyte Esterase,Urine Negative (Negative); Nitrite,Urine Negative (Negative); Protein,Urine 1+ (Negative); Urobilinogen,Urine <0.2 mg/dL (<2.0)
[2022-12-11 09:14] LABS: RBC,Urine 2 /hpf (0-5); WBC,Urine 2 /hpf (0-5)
[2022-12-11 09:15] LABS: Amorphous Sediment,Urine Few /hpf
[2022-12-11] MEDS ORDERED: HEPARIN SODIUM 1,000 UN/ML (10ML VL) IV PRN (12:34)
[2022-12-11] MEDS ORDERED: HEPARIN SOD,PORK IN 0.45% NACL 25,000 UNIT in 0.45% NACL 1 250ML.BAG IV SCH (12:45)
[2022-12-11 12:59] LABS: INR 1.9 (<1.2); Partial Thromboplastin Time 22.2 sec (22.0-30.0); Prothrombin Time 18.3 sec (9.0-12.0)
[2022-12-11 16:27] LABS: C Reactive Protein 1.6 mg/dL (<1.0)
--- NOTE | 2022-12-11 16:39 | P.CNNES ---
History of Present Illness Consult date: 12/11/22 Requesting physician: Mica Avery Reason for Consult: ?TIA History of Present Illness: This is a 52-year-old gentleman with history of your valve replacement who is on long-term Coumadin who presented that because of the feeling light headed, fatigue throughout. Patient stated that in the past couple days he felt lightheaded upon getting up and felt generalized fatigue weakness having difficulty getting up and he felt like he had to support himself because he was so tired. He cannot tell me if he had any fevers or not recently. He denies of any headache, any focal weakness any nausea any vomiting. Denies history of stroke or seizures. Denies any visual disturbance. It seems the patient was having some speech difficulty that was questionable but patient stated that this was his baseline and per the nurse she became and possibly confused Some of the workup during his hospital visit consisted of: Seems the patient had only 1 temperature checked and it was normal. She has been hypotensive as low as in the 60s to 70s systolic and diastolic is a 3240s White blood cell initially was 16.2 thousand and repeat is 15.3 and slightly neutrophilic. Initial plasm left acid and is 2.1 repeated is normalized. 0.17 TSH is 1.550 Phosphorus is 5.1 calcium is 9.8 Urine drug screen is positive for marijuana CT head w/o: It is reported as No evidence of acute intracranial pathology. I personally reviewed the CT of the head and I agree there is no acute or subacute ischemia there is no bleed. CTA head and neck is negative. CT angiography of the chest is reported as ascending aortic aneurysm without evidence of dissection, status post aortic valve replacement. Finding concern for bronchitis which may be due to infectious or inflammatory etiologies. No consolidation. Review of Systems Review of system: The 12 point system was reviewed and apparent positive and negative per HPI. Past Medical History Past Medical History: GERD/Reflux, Hyperlipidemia, Hypertension Additional Past Medical History / Comment(s): DJD History of Any Multi-Drug Resistant Organisms: None Reported Past Surgical History: Adenoidectomy, Joint Replacement, Orthopedic Surgery Additional Past Surgical History / Comment(s): 09/17/15 Total L hip arthroplasty with cell saver. Other surgical HX: AORTIC VALVE REPLACEMENT, RT KNEE ARTHROSCOPY Past Anesthesia/Blood Transfusion Reactions: No Reported Reaction Past Psychological History: Anxiety, Depression Past Alcohol Use History: None Reported Past Drug Use History: None Reported - Past Family History Father Family Medical History: Diabetes Mellitus Additional Family Medical History / Comment(s): Father is 79 yrs old. Mother Family Medical History: Renal Disease Additional Family Medical History / Comment(s): Mother has a AICD. She is 78yrs old. Medications and Allergies Home Medications Medication Instructions Recorded Confirmed Type Enalapril [Vasotec] 20 mg PO DAILY@1800 09/09/15 12/11/22 History Metoprolol Tartrate [Lopressor] 100 mg PO BID-W/MEALS 09/09/15 12/11/22 History Warfarin [Coumadin] 10 mg PO DAILY@1800 09/09/15 12/11/22 History hydroCHLOROthiazide 25 mg PO DAILY@1800 09/09/15 12/11/22 History Sertraline [Zoloft] 200 mg PO DAILY@179912/11/22 12/11/22 History Simvastatin [Zocor] 40 mg PO DAILY@1800 12/11/22 12/11/22 History Allergies Allergy/AdvReac Type Severity Reaction Status Date / Time Penicillins Allergy Unknown Verified 12/11/22 07:54 Physical Examination - Vital Signs Vital Signs: Vital Signs Temp Pulse Resp BP Pulse Ox 12/11/22 13:04 58 L 20 103/62 98 12/11/22 07:30 62 18 113/59 96 12/11/22 06:00 56 L 16 112/66 97 12/11/22 05:00 56 L 16 122/75 97 12/11/22 04:00 56 L 16 115/65 97 12/11/22 02:35 61 18 120/56 100 12/11/22 02:19 69 17 116/48 100 12/11/22 02:15 62 18 91/52 96 12/11/22 02:00 61 18 92/59 96 12/11/22 01:51 58 L 14 91/54 99 12/11/22 01:45 59 L 14 92/53 100 12/11/22 01:44 14 12/11/22 01:37 54 L 18 83/47 100 12/11/22 01:30 59 L 18 68/43 96 12/11/22 01:15 61 20 71/35 96 12/11/22 01:02 98.0 F 85 18 96/60 97 Intake and Output 12/10/22 12/11/22 12/11/22 22:59 06:59 14:59 Other: Weight 108.862 kg GENERAL: The patient is lying in bed and is not in acute distress. NEUROLOGICAL: Higher mental function: The patient is awake, alert, oriented to self, place and time. Patient is following commands. No aphasia and no neglect. Cranial nerves: The pupils are round, equal and reactive to light and accommodation. Visual coffey are full to confrontation throughout. Extraocular movement is intact no nystagmus is noted. Facial sensation is normal to touch throughout. The facial strength is normal throughout. Hearing is normal bilaterally to hand rub. Tongue is midline and moved [id number] without any difficulty. No dysarthria is noted. Shoulder shrug is normal bilaterally. Motor: The strength is 5 over 5 throughout. Normal tone and bulk. Cerebellum: Normal finger to nose heel to cummins bilaterally. Sensation: Sensation is normal to touch throughout. Reflexes (right/left): 2+ throughout. Plantars are downgoing bilaterally. Results - Laboratory Findings CBC and BMP: 12/11/22 05:46 12/11/22 05:46 Abnormal Lab Findings: Abnormal Labs 12/11/22 12/11/22 12/11/22 01:23 01:29 01:29 WBC 16.2 H Hgb Hct RDW 17.1 H Neutrophils # 12.4 H Monocytes # 1.2 H PT 17.7 H INR 1.8 H Carbon Dioxide BUN Creatinine Glucose POC Glucose (mg/dL) 128 H Plasma Lactic Acid Turner Phosphorus Total Protein Amorphous Sediment U Marijuana (THC) Screen 12/11/22 12/11/22 12/11/22 01:29 01:29 05:46 WBC 15.3 H Hgb 12.3 L Hct 38.0 L RDW 17.0 H Neutrophils # Monocytes # PT INR Carbon Dioxide 21 L BUN 34 H Creatinine 2.17 H Glucose 140 H POC Glucose (mg/dL) Plasma Lactic Acid Turner 2.1 H* Phosphorus 5.1 H Total Protein 8.3 H Amorphous Sediment U Marijuana (THC) Screen 12/11/22 12/11/22 12/11/22 05:46 08:22 08:22 WBC Hgb Hct RDW Neutrophils # Monocytes # PT INR Carbon Dioxide 21 L BUN 34 H Creatinine 1.72 H Glucose 129 H POC Glucose (mg/dL) Plasma Lactic Acid Turner Phosphorus Total Protein Amorphous Sediment Few H U Marijuana (THC) Screen Detected H 12/11/22 12:44 WBC Hgb Hct RDW Neutrophils # Monocytes # PT 18.3 H INR 1.9 H Carbon Dioxide BUN Creatinine Glucose POC Glucose (mg/dL) Plasma Lactic Acid Turner Phosphorus Total Protein Amorphous Sediment U Marijuana (THC) Screen Assessment and Plan Assessment: This is a 52-year-old gentleman with history of aortic valve replacement on long-term Coumadin who presented because of feeling dizziness with fatigue, generalized weakness difficulty standing up and feeling lightheaded upon standing up and there is a concern that the patient came in confused slurring his speech. On presentation his INR was subtherapeutic at 1.8. Patient presented the hypotensive as low as 6670 systolic and diastolic 30s to 40s Episode of lightheadedness with fatigue/generalized weakness with concern of speech difficulty and confusion likely due to underlying sepsis and unknown so urce. CT of the head, CTA of the head and neck is negative. CT angiography of the chest is reported as bronchitis Hypotension with leukocytosis likely due to underlying sepsis. Only 1 temperature was recorded and was afebrile. Acute kidney injury History of aortic valve replacement on long-term Coumadin and INR subtherapeutic of 1.8 History of hypertension Plan: I ordered MRI of the brain with and without. Pending blood culture. Pending that 2-D echo. Possible consider VAMSI. Cardiology is consulted Consider infection disease consultation. I ordered ESR and CRP. Notified nurse to check vitals with temperature on regular basis. We'll defer the use of anticoagulation to the cardiology team Every 4 hours neuro checks Consulted PT and OT for gait training We'll defer the rest of the medical management to primary team The plan was discussed with patient, his nurse and the primary team Thank you for the consultation Time with Patient: Greater than 30
--- NOTE | 2022-12-11 16:58 | CA ---
Transthoracic Echo Report Name: Reddy Lopez Age: 52 Gender: M : 1970 Exam Date: 12/11/2022 13:48 Exam Location: [facility] Ht (in): 70 Wt (lb): 240 Ordering Physician: Teri Aguero MD ([id number]) Attending/Referring Phys: More Williamson;[id number] Wire Drawing Setter Lauren Patiño RDCS Procedure CPT: Indications: check aortic mechanical valve, hypotention Cardiac Hx: Technical Quality: Fair Contrast 1: Total Dose (mL): Contrast 2: Total Dose (mL): MEASUREMENTS (Male / Female) Normal Values 2D ECHO LV Diastolic Diameter PLAX 6.5 cm 4.2 - 5.9 / 3.9 - 5.3 cm LV Systolic Diameter PLAX 5.3 cm IVS Diastolic Thickness 1.3 cm 0.6 - 1.0 / 0.6 - 0.9 cm LVPW Diastolic Thickness 1.4 cm 0.6 - 1.0 / 0.6 - 0.9 cm LV Relative Wall Thickness 0.4 RV Internal Dim ED PLAX 3.7 cm LVOT Diameter 3.3 cm LA Systolic Diameter LX 3.9 cm 3.0 - 4.0 / 2.7 - 3.8 cm LV Diastolic Volume MOD BP 205.0 cm??? 67 - 155 / 56 - 104 cm??? LV Systolic Volume MOD BP 81.7 cm??? 22 - 58 / 19 - 49 cm??? LV Ejection Fraction MOD BP 60.1 % >= 55 % LV Cardiac Index MOD BP 2929.6 cm???/min???m??? LV Diastolic Volume MOD 4C 215.5 cm??? LV Systolic Volume MOD 4C 98.8 cm??? LV Ejection Fraction MOD 4C 54.2 % LV Cardiac Index MOD 4C 2772.8 cm???/min???m??? LV Diastolic Length 4C 10.4 cm LV Systolic Length 4C 8.4 cm LV Diastolic Volume MOD 2C 181.1 cm??? LV Systolic Volume MOD 2C 67.3 cm??? LV Ejection Fraction MOD 2C 62.8 % LV Cardiac Index MOD 2C 2702.7 cm???/min???m??? LV Diastolic Length 2C 9.5 cm LV Systolic Length 2C 8.2 cm LA Volume 96.0 cm??? 18 - 58 / 22 - 52 cm??? M-MODE Aortic Root Diameter MM 5.1 cm MV E Point Septal Separation 1.6 cm DOPPLER AV Peak Velocity 257.9 cm/s AV Peak Gradient 26.6 mmHg AV Mean Velocity 163.9 cm/s AV Mean Gradient 12.8 mmHg AV Velocity Time Integral 48.2 cm LVOT Peak Velocity 90.9 cm/s LVOT Peak Gradient 3.3 mmHg AV Area Cont Eq pk 3.0 cm??? MV Area PHT 2.8 cm??? Mitral E Point Velocity 88.3 cm/s Mitral A Point Velocity 65.5 cm/s Mitral E to A Ratio 1.3 MV Deceleration Time 272.2 ms FINDINGS Left Ventricle Left ventricular ejection fraction is estimated at 55-60 %. Mildly increased septal wall thickness. Right Ventricle Mild right ventricular dilatation. Unable to estimate the right ventricular systolic pressure. Right Atrium Normal right atrial size. Left Atrium Severely increased left atrial volume. Mildly increased left atrial area. Mitral Valve Structurally normal mitral valve. No mitral stenosis, regurgitation or prolapse. Aortic Valve Mechanical AOV . Normally functioning prosthetic aortic valve. Gradient recorded across the prosthetic aortic valve within the expected range max 27 mm/Hg and mean 13 mmHg. Trace to mild aortic regurgitation. Tricuspid Valve Structurally normal tricuspid valve. No tricuspid stenosis, regurgitation or prolapse. Pulmonic Valve Structurally normal pulmonic valve. Trace pulmonic regurgitation. Pericardium Normal pericardium. No pericardial effusion. Aorta Severely dilated aortic annulus. Severly dilated descending AO CONCLUSIONS Left ventricular ejection fraction 55-60% Mildly increased left ventricular wall thickness Mild right ventricular dilation Normally functioning prosthetic aortic valve Aortic root dilated 5.1 cm Previewed by: Dr. Acosta Jennings DO (Electronically Signed) Final Date: 11 December 2022 16:57
[2022-12-11] MEDS ORDERED: WARFARIN 2 MG TAB PO ONE (18:00)
[2022-12-11] MEDS: ATORVASTATIN 20 MG TAB PO SCH (18:12)
[2022-12-11] MEDS: WARFARIN 10 MG TAB PO SCH (18:12)
[2022-12-11 20:52] LABS: Prothrombin Time 19.9 sec (9.0-12.0)
[2022-12-12 02:33] LABS: Chol/HDL Ratio 7.43 Ratio; LDL Cholesterol,Calculated 125.2 mg/dL (0.0-131.0)
[2022-12-12 05:16] LABS: Anisocytosis Slight; Basophils % (A) 1 %; Eosinophils # (A) 0.1 k/uL (0-0.7); Eosinophils % (A) 2 %; HCT 35.2 % (39.0-53.0); HGB 11.3 gm/dL (13.0-17.5); Hypochromasia Marked; Lymphocytes # (A) 2.1 k/uL (1.0-4.8); Lymphocytes % (A) 34 %; MCH 26.7 pg (25.0-35.0); MCHC 32.2 g/dL (31.0-37.0); MCV 82.8 fL (80.0-100.0); Monocytes # (A) 0.4 k/uL (0-1.0); Monocytes % (A) 7 %; Neutrophils # (A) 3.2 k/uL (1.3-7.7); Neutrophils % (A) 52 %; Platelet Count 132 k/uL (150-450); RBC 4.25 m/uL (4.30-5.90)
[2022-12-12 05:26] LABS: INR 2.3 (<1.2); Partial Thromboplastin Time 64.4 sec (22.0-30.0); Prothrombin Time 22.1 sec (9.0-12.0)
[2022-12-12] MEDS: SODIUM CHLORIDE 0.9% 1,000 ML IV SCH (05:51)
[2022-12-12 06:51] LABS: ALT 17 U/L (4-49); AST 27 U/L (17-59); African American GFR (CKD) >90 (>60 ml/min/1.73 sqM); Albumin 3.6 g/dL (3.5-5.0); Alkaline Phosphatase 61 U/L (38-126); Anion Gap 5 mmol/L; Blood Urea Nitrogen 25 mg/dL (9-20); Calcium 8.7 mg/dL (8.4-10.2); Carbon Dioxide 22 mmol/L (22-30); Chloride 112 mmol/L (98-107); Glucose 98 mg/dL (74-99); Non-African American GFR(CKD) >90 (>60 ml/min/1.73 sqM); Sodium 139 mmol/L (137-145); Total Bilirubin 0.2 mg/dL (0.2-1.3); Total Protein 6.1 g/dL (6.3-8.2)
[2022-12-12 07:07] LABS: Potassium 4.3 mmol/L (3.5-5.1)
[2022-12-12] MEDS ORDERED: MECLIZINE 25 MG TAB PO PRN (08:12)
--- NOTE | 2022-12-12 09:14 | P.PN ---
Subjective Progress Note Date: 12/12/22 History of present illness: 52-year-old gentleman with history of I aortic valve and root replacement who is on long-term Coumadin presented to Hospital with symptoms of not feeling well dizziness and transient inability to speak and unstable gait. They thought he may have had a TIA and he was brought in as a "stroke. INR is subtherapeutic at 1.8. At the time of my evaluation this morning in the emergency room on his neurological symptoms have resolved. He does not have chest pain difficulty in breathing palpitations dizziness syncope. There is no history of leg edema PND or orthopnea. There is no prior history of CVA. On his initial presentation patient was hypotensive. His blood pressures dropped into the 60s. He received fluids and at the time of my evaluation his blood pressure appears normal. Is currently undergoing workup for possible adrenal insufficiency. He underwent a computed tomography scan of the chest that was negative for dissection. His aortic root is mildly dilated. He has had blood cultures. White cell count is elevated of unclear clinical significance. I will obtain a 2-D echo to assess the prosthetic valve. He is on multiple antihypertensives and probably his hypotension is iatrogenic. He does not see a manager occupational regularly. His aortic valve was replaced in 2004. Past medical history is significant for hypertension dyslipidemia I aortic valve root replacement and Coumadin therapy . Medications at home include enalapril simvastatin Coumadin hydrochlorothiazide and metoprolol . Patient is ALLERGIC to penicillin family history is negative for premature coronary artery disease social history is significant for marijuana use. Patient states that he uses marijuana about 5 hours prior to this. There is no history of redo should use of and he denies tobacco smoking 12/12 Patient is seen today and remains in the emergency center. He is on heparin drip which will be discontinued. Heart rate is in the 60s and 70s, INR 2.3. Patient is complaining of dizziness as well as pain in his back and down his le gs which is interfering with his activity and walking. Other lab work reveals WBC 6, hemoglobin 11.3, potassium 4.3, BUN 25 and creatinine 0.91. Triglycerides 287, LDL 125, cholesterol 211. Blood cultures are status received. Echocardiogram reveals EF of 55-60%, Examination patient is comfortable at rest vital signs are stable there is a jugular venous distention carotid upstroke is normal there is no bruit chest exam reveals good air entry bilaterally heart exam reveals first and second heart sounds no gallop prosthetic valve sound is clearly abdomen is soft exam extremities did not revea l any edema pulses are palpable [employer] exam did not reveal focal neurological deficits Assessment and plan: Hypotension elevated white cell count acute renal insufficiency status post mechanical aortic valve replacement Back pain and leg pain Vertigo plan: Blood cultures in progress Patient will be resumed back on Lopressor at a lower dose of 25 mg twice daily and also enalapril at a lower dose of 5 mg twice daily Discontinue heparin drip and continue Coumadin pharmacy dosing Obtain arterial duplex the lower extremities Consult with Dr. Marte's in regarding back pain and leg pain Add Antivert 25 mg 3 times daily as needed for vertigo. Nurse practitioner note has been reviewed, I agree with documented findings and plan of care. Patient was seen and examined. Objective - Vital Signs Vital signs: Vital Signs Temp 98.1 F 12/12/22 04:00 Pulse 62 12/12/22 04:00 Resp 26 H 12/12/22 04:00 BP 120/59 12/12/22 04:00 Pulse Ox 98 12/12/22 04:00 FiO2 Intake & Output 12/11/22 12/12/22 12/12/22 18:59 06:59 18:59 Intake Total 619.865 Balance 619.865 Weight 108.862 kg Intake: Intake, IV Titration 79.865 Amount Heparin Sod,Pork in 0.45% 79.865 NaCl 25,000 unit In 0.45 % NaCl 1 250ml.bag @ 9.19 UNITS/KG/HR 10.004 mls/ hr IV .Q24H [facility] Rx#: [id number] Oral 540 Other: Voiding Method Urinal # Voids 1 - Labs CBC & Chem 7: 12/12/22 04:38 12/12/22 04:38 Labs: Abnormal Lab Results - Last 24 Hours (Table) 12/11/22 12/11/22 12/11/22 Range/Units 08:22 08:22 12:44 RBC (4.30-5.90) m/uL Hgb (13.0-17.5) gm/dL Hct (39.0-53.0) % RDW (11.5-15.5) % Plt Count (150-450) k/uL PT 18.3 H (9.0-12.0) sec INR 1.9 H (<1.2) APTT (22.0-30.0) sec Chloride (98-107) mmol/L BUN (9-20) mg/dL C-Reactive Protein (<1.0) mg/dL Total Protein (6.3-8.2) g/dL Triglycerides (0.00-149.00) mg/dL Cholesterol (0.00-200.00) mg/dL VLDL Cholesterol, Calc (5.00-40.00) mg/dL HDL Cholesterol (40.00-60.00) mg/dL Amorphous Sediment Few H (None) /hpf U Marijuana (THC) Screen Detected H (NotDetected) 12/11/22 12/11/22 12/11/22 Range/Units 15:33 20:27 21:48 RBC (4.30-5.90) m/uL Hgb (13.0-17.5) gm/dL Hct (39.0-53.0) % RDW (11.5-15.5) % Plt Count (150-450) k/uL PT 19.9 H (9.0-12.0) sec INR 2.0 H (<1.2) APTT 34.1 H (22.0-30.0) sec Chloride (98-107) mmol/L BUN (9-20) mg/dL C-Reactive Protein 1.6 H (<1.0) mg/dL Total Protein (6.3-8.2) g/dL Triglycerides 287.00 H (0.00-149.00) mg/dL Cholesterol 211.00 H (0.00-200.00) mg/dL VLDL Cholesterol, Calc 57.40 H (5.00-40.00) mg/dL HDL Cholesterol 28.40 L (40.00-60.00) mg/dL Amorphous Sediment (None) /hpf U Marijuana (THC) Screen (NotDetected) 12/12/22 12/12/22 12/12/22 Range/Units 04:38 04:38 04:38 RBC 4.25 L (4.30-5.90) m/uL Hgb 11.3 L (13.0-17.5) gm/dL Hct 35.2 L (39.0-53.0) % RDW 17.0 H (11.5-15.5) % Plt Count 132 L (150-450) k/uL PT 22.1 H (9.0-12.0) sec INR 2.3 H (<1.2) APTT 64.4 H (22.0-30.0) sec Chloride 112 H (98-107) mmol/L BUN 25 H (9-20) mg/dL C-Reactive Protein (<1.0) mg/dL Total Protein 6.1 L (6.3-8.2) g/dL Triglycerides (0.00-149.00) mg/dL Cholesterol (0.00-200.00) mg/dL VLDL Cholesterol, Calc (5.00-40.00) mg/dL HDL Cholesterol (40.00-60.00) mg/dL Amorphous Sediment (None) /hpf U Marijuana (THC) Screen (NotDetected)
--- NOTE | 2022-12-12 09:20 | US ---
EXAMINATION TYPE: US arterial LE single level DATE OF EXAM: 12/12/2022 9:10 AM CLINICAL INDICATION: Male, 52 years old with history of pain bilat legs; Patient states bilateral leg pain. Hx of left hip surgery. Portable EC exam History of: Smoker: Previous Hypertension: No Diabetic: No Hyperlipidemia: No TIA/CVA: No Previous Vascular Surgery: No CAD: Yes [place]: Yes Vascular Ulcers: No Claudication: No Gangrene: No Doppler Waveforms: Right: Multiphasic Left: Multiphasic Right Brachial Pressure: 156 Left Brachial Pressure: Deferred due to IV site Ankle-Brachial Indices: Right: 1.5 Left: 1.5 Toe Brachial Indices: Right: 1.1 Left: 0.9 IMPRESSION: 1. Elevated bilateral MUNDO can be associated with calcified vasculature. Correlate clinically. 2. Normal TBI indices.
[2022-12-12] MEDS: lisinopriL 20 MG TAB PO SCH (09:29)
[2022-12-12] MEDS: METOPROLOL TARTRATE 25 MG TAB PO SCH ×2 (09:29→18:20)
--- NOTE | 2022-12-12 12:59 | P.CNOR ---
History of Present Illness - [facility] Consult date: 12/12/22 Requesting physician: Yamilet Gottlieb Consult reason: low back pain (Low back pain with lower extremity radiculopathy and neurogenic claudication) History of present illness: Patient is a very pleasant 52-year-old male who is seen and examined in the emergency department in room #25 for further evaluation of his lumbar spine. In regards to his lumbar spine, he states he has been experiencing worsening low back pain over the past year. He states he has difficulty with standing upright when first standing. He states the pain is across his lower lumbar spine. He states after prolonged ambulation his legs feel heavy and he ambulates in a flexed forward position. He states at that time he must stop and rest. He states the pain radiates from his lumbar spine, over his lateral hips, and over the anterior thighs. He denies any specific injuries in regards to his lumbar spine. He has not had specific treatment or evaluation in regards to his lumbar spine in the outpatient setting. He does have a history of a left total hip arthroplasty performed by Dr. Coelho in 2016 or 2017. He states he does have some arthritis in his right hip. He denies any specific lower extremity weakness bilaterally. Initially he presented to [facility] emergency department because of feeling lightheaded and fatigue. He felt lightheaded when getting up to ambulate. He has had difficulty supporting himself due to being tired. There was also some concern that the patient presented with confusion and slurred speech. There was some concern for possible stroke and he is had significant testing since that time for further evaluation. He initially presented with hypotension. He has a history of hypertension. He is being seen by neurology. Currently brain MRI imaging with and without contrast has been ordered but has not yet been performed as ordered by nd urology. Further lab testing with ESR and CRP has also been ordered. He has a significant medical history which includes valve replacement and is on long-term anticoagulation with Coumadin. He has been seen by cardiology as well. Echocardiogram has been ordered. He has undergone multiple imaging modalities including Doppler and multiple CT scans. So far, there has not been any significant findings on CT imaging. Doppler imaging showed elevated bilateral ankle brachial indices which could be associated with calcified vasculature. Past Medical History Past Medical History: GERD/Reflux, Hyperlipidemia, Hypertension Additional Past Medical History / Comment(s): DJD History of Any Multi-Drug Resistant Organisms: None Reported Past Surgical History: Adenoidectomy, Joint Replacement, Orthopedic Surgery Additional Past Surgical History / Comment(s): 09/17/15 Total L hip arthroplasty with cell saver. Other surgical HX: AORTIC VALVE REPLACEMENT, RT KNEE ARTHROSCOPY Past Anesthesia/Blood Transfusion Reactions: No Reported Reaction Past Psychological History: Anxiety, Depression Past Alcohol Use History: None Reported Past Drug Use History: None Reported - Past Family History Father Family Medical History: Diabetes Mellitus Additional Family Medical History / Comment(s): Father is 79 yrs old. Mother Family Medical History: Renal Disease Additional Family Medical History / Comment(s): Mother has a AICD. She is 78yrs old. Medications and Allergies Home Medications Medication Instructions Recorded Confirmed Type Enalapril [Vasotec] 20 mg PO DAILY@1800 09/09/15 12/11/22 History Metoprolol Tartrate [Lopressor] 100 mg PO BID-W/MEALS 09/09/15 12/11/22 History Warfarin [Coumadin] 10 mg PO DAILY@179909/09/15 12/11/22 History hydroCHLOROthiazide 25 mg PO DAILY@1800 09/09/15 12/11/22 History Sertraline [Zoloft] 200 mg PO DAILY@179912/11/22 12/11/22 History Simvastatin [Zocor] 40 mg PO DAILY@179912/11/22 12/11/22 History Allergies Allergy/AdvReac Type Severity Reaction Status Date / Time Penicillins Allergy Unknown Verified 12/11/22 07:54 Physical Examination Physical exam: Patient is awake, alert, and oriented 3 Vital signs stable Good chest excursion with deep inspiration and expiration Abdomen soft nontender Examination of lumbar spine reveals skin is intact with no abrasions, lacerations, or bruises; no erythema, purulence or signs of infection No significant pain with palpation of the lumbosacral spine. Dorsiflexion, plantarflexion, and extensor hallucis longus positive sustained bilaterally Lower extremity strength 5/5 bilaterally Patient is able to stand independently bilaterally and ambulate in the room independently without significant difficulty Patient is able to stand on toes and heels bilaterally independently Patellar reflex 3-4+ bilaterally and Achilles reflexes 2+ bilaterally +3 beats of clonus bilateral lower extremities Straight leg test negative bilateral lower extremities Some pain with internal and external rotation of the right hip Stiffness with range of motion of the bilateral hips. Neurovascularly intact Results Pertinent studies: Thoracic aorta CT reviewed for orthopedic purposes: Overall alignment lumbosacral spine appears to be maintained; no evidence of compression fracture deformity; T12-L1 and L1-2 posterior osteophytic spurring; difficult to assess the spinal canal - Labs Labs: Abnormal Lab Results - Last 24 Hours (Table) 12/11/22 12/11/22 12/11/22 Range/Units 12:44 15:33 20:27 RBC (4.30-5.90) m/uL Hgb (13.0-17.5) gm/dL Hct (39.0-53.0) % RDW (11.5-15.5) % Plt Count (150-450) k/uL PT 18.3 H 19.9 H (9.0-12.0) sec INR 1.9 H 2.0 H (<1.2) APTT (22.0-30.0) sec Chloride (98-107) mmol/L BUN (9-20) mg/dL C-Reactive Protein 1.6 H (<1.0) mg/dL Total Protein (6.3-8.2) g/dL Triglycerides 287.00 H (0.00-149.00) mg/dL Cholesterol 211.00 H (0.00-200.00) mg/dL VLDL Cholesterol, Calc 57.40 H (5.00-40.00) mg/dL HDL Cholesterol 28.40 L (40.00-60.00) mg/dL 12/11/22 12/12/22 12/12/22 Range/Units 21:48 04:38 04:38 RBC 4.25 L (4.30-5.90) m/uL Hgb 11.3 L (13.0-17.5) gm/dL Hct 35.2 L (39.0-53.0) % RDW 17.0 H (11.5-15.5) % Plt Count 132 L (150-450) k/uL PT (9.0-12.0) sec INR (<1.2) APTT 34.1 H (22.0-30.0) sec Chloride 112 H (98-107) mmol/L BUN 25 H (9-20) mg/dL C-Reactive Protein (<1.0) mg/dL Total Protein 6.1 L (6.3-8.2) g/dL Triglycerides (0.00-149.00) mg/dL Cholesterol (0.00-200.00) mg/dL VLDL Cholesterol, Calc (5.00-40.00) mg/dL HDL Cholesterol (40.00-60.00) mg/dL 12/12/22 Range/Units 04:38 RBC (4.30-5.90) m/uL Hgb (13.0-17.5) gm/dL Hct (39.0-53.0) % RDW (11.5-15.5) % Plt Count (150-450) k/uL PT 22.1 H (9.0-12.0) sec INR 2.3 H (<1.2) APTT 64.4 H (22.0-30.0) sec Chloride (98-107) mmol/L BUN (9-20) mg/dL C-Reactive Protein (<1.0) mg/dL Total Protein (6.3-8.2) g/dL Triglycerides (0.00-149.00) mg/dL Cholesterol (0.00-200.00) mg/dL VLDL Cholesterol, Calc (5.00-40.00) mg/dL HDL Cholesterol (40.00-60.00) mg/dL H & H 12/11/22 12/11/22 12/12/22 Range/Units 01:29 05:46 04:38 Hgb 14.6 12.3 L 11.3 L (13.0-17.5) gm/dL Hct 44.7 38.0 L 35.2 L (39.0-53.0) % Coagulation 12/11/22 12/11/22 12/11/22 Range/Units 01:29 12:44 20:27 INR 1.8 H 1.9 H 2.0 H (<1.2) 12/12/22 Range/Units 04:38 INR 2.3 H (<1.2) Result Diagrams: 12/12/22 04:38 12/12/22 04:38 Assessment and Plan Assessment: Assessment: Chronic low back pain worsening over the last year Neurogenic claudication Lower extremity radiculopathy History left total hip arthroplasty Lower extremity hyperreflexia the patella bilaterally +3 beats clonus bilateral lower extremities T12-L1 and L1-2 posterior osteophytic spurring Dizziness Fatigue Possible presentation of slurred speech and confusion History of aortic valve replacement Long-term anticoagulation use History of hypertension Hyperlipidemia (1) Acute exacerbation of chronic low back pain Current Visit: Yes Status: Acute Code(s): M54.50 - LOW BACK PAIN, UNSPECIFIED; G89.29 - OTHER CHRONIC PAIN SNOMED Code(s): 021410008 (2) Neurogenic claudication Current Visit: Yes Status: Acute Code(s): R29.818 - OTHER SYMPTOMS AND SIGNS INVOLVING THE NERVOUS SYSTEM SNOMED Code(s): 216987663 (3) Radiculopathy with lower extremity symptoms Current Visit: Yes Status: Acute Code(s): M54.10 - RADICULOPATHY, SITE UNSPECIFIED SNOMED Code(s): 97817413 (4) History of total left hip arthroplasty Current Visit: Yes Status: Acute Code(s): Z96.642 - PRESENCE OF LEFT ARTIFICIAL HIP JOINT SNOMED Code(s): 683982201098 (5) Clonus Current Visit: Yes Status: Acute Code(s): R25.8 - OTHER ABNORMAL INVOLUNTARY MOVEMENTS SNOMED Code(s): 63446161 (6) Hyperreflexia of lower extremity Current Visit: Yes Status: Acute Code(s): R29.2 - ABNORMAL REFLEX SNOMED Code(s): 70594314 (7) Dizziness Current Visit: Yes Status: Acute Code(s): R42 - DIZZINESS AND GIDDINESS SNOMED Code(s): 316906914 (8) Fatigue Current Visit: Yes Status: Acute Code(s): R53.83 - OTHER FATIGUE SNOMED Code(s): 71766630 (9) History of aortic valve replacement Current Visit: Yes Status: Acute Code(s): Z95.2 - PRESENCE OF PROSTHETIC HEART VALVE SNOMED Code(s): 1423812071176 (10) Current use of termite renewal inspector anticoagulation Current Visit: Yes Status: Acute Code(s): Z79.01 - ALF (CURRENT) USE OF ANTICOAGULANTS SNOMED Code(s): 021916561 (11) History of hypertension Current Visit: Yes Status: Acute Code(s): Z86.79 - PERSONAL HISTORY OF OTHER DISEASES OF THE CIRCULATORY SYSTEM SNOMED Code(s): 597068248 (12) Hypotension Current Visit: Yes Status: Acute Code(s): I95.9 - HYPOTENSION, UNSPECIFIED SNOMED Code(s): 53874098 (13) Hyperlipidemia Current Visit: Yes Status: Acute Code(s): E78.5 - HYPERLIPIDEMIA, UNSPECIFIED SNOMED Code(s): 70617448 Plan: Plan: 1. Patient states he has been experiencing worsening low back pain over the past year. He states he has difficulty with standing upright when first standing. He states the pain is across his lower lumbar spine. He states after prolonged ambulation his legs feel heavy and he ambulates in a flexed forward position. He states at that time he must stop and rest. He states the pain radiates from his lumbar spine, over his lateral hips, and over the anterior thighs. He denies any specific injuries in regards to his lumbar spine. He has not had specific treatment or evaluation in regards to his lumbar spine in the outpatient setting. He does have a history of a left total hip arthroplasty performed by Dr. Coelho in 2016 or 2017. He states he does have some arthritis in his right hip. He denies any specific lower extremity weakness bilaterally. Since his initial presentation dizziness, fatigue with possible slurred speech and confusion along with his medical history which includes aortic valve replacement, patient has undergone multiple imaging modalities with further imaging modalities ordered. He's been seen by neurology, medicine, and cardiology. 2-D echocardiogram has been ordered. Brain MRI imaging with and without contrast has been ordered. He is currently hooked up to EKG testing. Currently, we discussed his other medical diagnoses and treatment and evaluation he is undergoing while here at [facility]. He is also on long-term anticoagulation medication. We did discuss his symptoms have been chronic but have been worsening over the past year without injury. He describes neurogenic claudication. He is able to ambulate independently. He stands at the bedside independently. He is able to stand on toes and heels. He is able to stand on each leg independently and perform hip flexion bilaterally. He is not having a specific neurological decline. Reviewing of imaging does show some degenerative change near the thoracolumbar junction. We did discuss he should continue to be seen and examined by medicine, neurology, and cardiology for his other medical diagnoses continue with her testing as scheduled. We did discuss the importance of being cleared from neurological standpoint as well as a cardiac standpoint. Following his further imaging and review, once patient is clear for discharge, we would plan have the patient follow-up in the outpatient setting for further evaluation and treatment of his lumbar spine. We did discuss we may plan for further imaging in outpatient setting as well as formal physical therapy. We also discussed if his symptoms did not improve with conservative treatment we will plan to obtain MRI imaging of his lumbar spine. Patient does feel this is a good plan of care. Patient states he does wish to avoid surgical intervention at his lumbar spine. He would be willing to work to further conservative treatment options. Patient may follow-up with Heri Hernandez PA-C or Dr. Rolo Harvey at [facility] in 2-3 weeks following discharge. 2. Patient will continue to be seen and examined examined by multiple other medical providers for his other diagnoses including neurology, medicine, and cardiology. Time with Patient: Greater than 30 (Including obtaining history, physical exam ination, reviewing of imaging, and dictation.)
--- NOTE | 2022-12-12 14:36 | CT ---
EXAMINATION TYPE: CT lumbar spine wo con CT DLP: 1555.6 mGycm, Automated exposure control for dose reduction was used. DATE OF EXAM: 12/12/2022 2:28 PM COMPARISON: None. CLINICAL INDICATION:Male, 52 years old with history of low back pain; PHH, lower back pain TECHNIQUE: Multiple axial images were obtained from the midportion of T11 through the sacroiliac gricelda nts. Soft tissue and bone windows in coronal and sagittal planes were obtained and reviewed. FINDINGS: Alignment: There are 5 lumbar type vertebral bodies. Mild retrolisthesis of L3 on L4. Bone: No evidence of fracture is identified. Post surgical changes from total left hip arthroplasty. Multilevel degenerative disc disease with disc space narrowing and endplate sclerosis, and anterior osteophytosis. Discs: T12-L1: Broad-based disc bulge with mild effacement of the anterior thecal sac. No neural foraminal s tenosis. L1-L2: Posterior disc osteophyte complex with mild effacement of anterior thecal sac. The neural fora men are patent bilaterally. L2-L3: Broad-based disc bulge with mild effacement of anterior thecal sac. Bilateral facet arthropath y. No neural foraminal stenosis. L3-L4: Broad-based disc bulge with mild effacement of the anterior thecal sac. Bilateral facet arthro thomas without significant neural foraminal stenosis. L4-L5: Central disc protrusion superimposed upon a broad-based disc bulge with mild to moderate cent ral canal stenosis. Bilateral facet arthropathy. Minimal bilateral neural foraminal stenosis. L5-S1: Broad-based disc bulge without significant spinal canal stenosis. Bilateral facet arthropathy. No significant neural foraminal stenosis. Other: None IMPRESSION: 1. No evidence of fracture of the lumbar spine. 2. L4-L5 disc herniation with broad-based disc bulge resulting in mild to moderate central canal sten osis. Bilateral facet arthropathy also demonstrated with minimal bilateral neural foraminal stenosis. 3. Multilevel degenerative disc disease and facet arthropathy as described above.
--- NOTE | 2022-12-12 15:18 | P.PN ---
Subjective Progress Note Date: 12/12/22 The patient is seen at bedside and feels he is doing better. Denies of any new neurological issues. He states he has chronic low back pain and has not worsened. Denies of any new focal weakness or speech difficulty. Objective - Vital Signs Vital signs: Vital Signs Temp 97.9 F 12/12/22 12:00 Pulse 57 L 12/12/22 14:00 Resp 16 12/12/22 14:00 BP 150/85 12/12/22 12:00 Pulse Ox 96 12/12/22 12:00 FiO2 Intake & Output 12/11/22 12/12/22 12/12/22 18:59 06:59 18:59 Intake Total 619.865 Balance 619.865 Weight 108.862 kg Intake: Intake, IV Titration 79.865 Amount Heparin Sod,Pork in 0.45% 79.865 NaCl 25,000 unit In 0.45 % NaCl 1 250ml.bag @ 9.19 UNITS/KG/HR 10.004 mls/ hr IV .Q24H DAYNE Rx#: [id number] Oral 540 Other: Voiding Method Urinal Urinal # Voids 1 - Exam GENERAL: The patient is lying in bed and is not in acute distress. NEUROLOGICAL: Higher mental function: The patient is awake, alert, oriented to self, place and time. Patient is following commands. No aphasia and no neglect. Cranial nerves: The pupils are round, equal and reactive to light and ac commodation. Visual coffey are full to confrontation throughout. Extraocular movement is intact no nystagmus is noted. Facial sensation is normal to touch throughout. The facial strength is normal throughout. Hearing is normal bilaterally to hand rub. Tongue is midline and moved [id number] without any difficulty. No dysarthria is noted. Shoulder shrug is normal bilaterally. Motor: The strength is 5 over 5 throughout. Normal tone and bulk. Cerebellum: Normal finger to nose heel to cummins bilaterally. Sensation: Sensation is normal to touch throughout. Reflexes (right/left): 2+ throughout. Plantars are downgoing bilaterally. Some of the workup during his hospital visit consisted of: He has been hypotensive as low as in the 60s to 70s systolic and diastolic is a 30-40s--improved. White blood cell initially was 16.2 thousand and repeat is 15.3 and slightly neutrophilic.--resolved Initial plasm lactic acid and is 2.1 repeated is normalized. Lipid panel is triglycerides 287, cholesterol 211, LDLs 125, HDL is 28. TSH is 1.550 Phosphorus is 5.1 calcium is 9.8 ESR is 8. CRP is is 1.6 and normal is less than 1.0. Urine drug screen is positive for marijuana CT head w/o: It is reported as No evidence of acute intracranial pathology. I personally reviewed the CT of the head and I agree there is no acute or subacute ischemia there is no bleed. CTA head and neck is negative. CT angiography of the chest is reported as ascending aortic aneurysm without evidence of dissection, status post aortic valve replacement. Finding concern for bronchitis which may be due to infectious or inflammatory etiologies. No consolidation. 2-D echo was reported as left ventricular ejection fraction 55-60%. Mildly increased left ventricular wall thickness. Mildly right ventricle dilation. Aortic dilated of 5.1 cm - Labs CBC & Chem 7: 12/12/22 04:38 12/12/22 04:38 Labs: Abnormal Lab Results - Last 24 Hours (Table) 12/11/22 12/11/22 12/11/22 Range/Units 15:33 20:27 21:48 RBC (4.30-5.90) m/uL Hgb (13.0-17.5) gm/dL Hct (39.0-53.0) % RDW (11.5-15.5) % Plt Count (150-450) k/uL PT 19.9 H (9.0-12.0) sec INR 2.0 H (<1.2) APTT 34.1 H (22.0-30.0) sec Chloride (98-107) mmol/L BUN (9-20) mg/dL C-Reactive Protein 1.6 H (<1.0) mg/dL Total Protein (6.3-8.2) g/dL Triglycerides 287.00 H (0.00-149.00) mg/dL Cholesterol 211.00 H (0.00-200.00) mg/dL VLDL Cholesterol, Calc 57.40 H (5.00-40.00) mg/dL HDL Cholesterol 28.40 L (40.00-60.00) mg/dL 12/12/22 12/12/22 12/12/22 Range/Units 04:38 04:38 04:38 RBC 4.25 L (4.30-5.90) m/uL Hgb 11.3 L (13.0-17.5) gm/dL Hct 35.2 L (39.0-53.0) % RDW 17.0 H (11.5-15.5) % Plt Count 132 L (150-450) k/uL PT 22.1 H (9.0-12.0) sec INR 2.3 H (<1.2) APTT 64.4 H (22.0-30.0) sec Chloride 112 H (98-107) mmol/L BUN 25 H (9-20) mg/dL C-Reactive Protein (<1.0) mg/dL Total Protein 6.1 L (6.3-8.2) g/dL Triglycerides (0.00-149.00) mg/dL Cholesterol (0.00-200.00) mg/dL VLDL Cholesterol, Calc (5.00-40.00) mg/dL HDL Cholesterol (40.00-60.00) mg/dL Microbiology - Last 24 Hours (Table) 12/11/22 06:00 Blood Culture - Preliminary Blood 12/11/22 05:50 Blood Culture - Preliminary Blood Assessment and Plan Assessment: This is a 52-year-old gentleman with history of aortic valve replacement on long-term Coumadin who presented because of feeling dizziness with fatigue, generalized weakness difficulty standing up and feeling lightheaded upon standing up and there is a concern that the patient came in confused slurring his speech. On presentation his INR was subtherapeutic at 1.8. Patient presented the hypotensive as low as 6670 systolic and diastolic 30s to 40s Episode of lightheadedness with fatigue/generalized weakness with concern of speech difficulty and confusion likely due to underlying sepsis and unknown source. CT of the head, CTA of the head and neck is negative. CT angiography of the chest is reported as bronchitis. Had dilated aortic root on 2D echo Hypotension with leukocytosis. Rule out underlying sepsis. Acute kidney injury Dyslipidemia Hypertriglyceridemia History of aortic valve replacement on long-term Coumadin and INR subtherapeutic of 1.8 Chronic low back pain History of hypertension Plan: Pending MRI of the brain with and without. Pending blood culture. 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 We'll defer that further management to the cardiology/cardiothoracic team if needed. Possible consider VAMSI unknown source of his hypotension. CT lumbar spine is ordered since the patient stated that he is having low back pain but denies any new deficit. Ordered to rule out any significant stenosis. CT lumbar is reported as no evidence of fracture of the lumbar spine. L4-L5 disc herniation with broad-based disc bulge resulting in mild to moderate central canal stenosis. Bilateral facet arthropathy also demonstrated with minimal bilateral neural foraminal stenosis. Multilevel degenerative disc disease and facet arthropathy. Seems cardiology consulted orthopedic surgeon (Dr. Olivares) for his low back pain. Cardiology is consulted Consider infection disease consultation. We'll defer the use of anticoagulation to the cardiology team Every 4 hours neuro checks Consulted PT and OT for gait training We'll defer the rest of the medical management to primary team The plan was discussed with patient and primary team. Time with Patient: Less than 30
--- NOTE | 2022-12-12 17:11 | P.PN ---
Subjective Progress Note Date: 12/12/22 Patient is a 52-year-old male with a PMH of thoracic aortic aneurysm, status post aortic valve replacement on Lovenox, hypertension, and hyperlipidemia who presents to the emergency room for generalized weakness, slurred speech, and diaphoresis. The patient reports that he was in his usual state of health until he went to some family members house earlier in the evening with a noted that he was sweating. The patient then proceeded to go home but later in the night developed slurring of his speech, generalized fatigue, and blurry vision. He subsequently decided to come to the emergency room. Code stroke was activated upon arrival. Upon arrival, the patient's vitals were 96/60 with pulse 85 and SpO2 97% on room air with temperature 98.0F. The patient's subsequently vitals were BP 68/[address] angiogram thoracic aorta revealed an ascending aortic aneurysm 41 mm without dissection or rupture. CT angiogram abdomen and pelvis revealed hepatic steatosis but otherwise unremarkable. CT brain was unremarkable. EKG revealed sinus rhythm at 80 bpm with T-wave inversion in leads V4 to V6 as well as 2, 3, and aVF. Laboratory evaluation was remarkable for leukocytosis of 16.2, lactic acid 2.1, BUN 34, creatinine 2.17 (previously 0.8). 12/12 Patient was seen and examined. He reports no complaints. Worried about his bills. States he has slurred speech at baseline. BP 156/72, P 73, T 98.6F, 98% on RA. CBC shows Hg 11.3, Plt 132. INR 2.3. CMP Cl 112, BUN 25. Lipid panel T. Chol 211, TG 287, HDL 28.4, VLDV 57.4. TSH 1.55. Cortisol 14. Flu, RSV, COVID 19 negative. UDS + marijuana. Echo shows EF 55-60% with normal functioning prosthetic AV and aortic root dilated at 5.1 cm. Heparin drip discontinued. Blood culture preliminary negative. Pertinent studies include CXR, CT brain, CT thoracic aorta, CTA head and neck, Echo. General: non toxic, no distress, appears at stated age Derm: warm, dry Head: atraumatic, normocephalic, symmetric Eyes: EOMI, no lid lag, anicteric sclera Mouth: no lip lesion, mucus membranes moist Cardiovascular: S1S2 reg, no murmur, positive posterior tibial pulse bilateral, Lungs: CTA bilateral, no rhonchi, no rales , no accessory muscle use Abdominal: soft, nontender to palpation, no guarding, no appreciable organomegaly Ext: no gross muscle atrophy, no edema, no contractures Neuro: CN II-XI grossly intact, no focal neuro deficits Psych: Alert, oriented, appropriate affect Slurred speech and confusion SIRS, unclear etiology Resolved: Lactic acidosis, ALO Based on my assessment of this patient, this patient meets a high complexity le gordon of care. Patient has an acute diagnosis of hypotension meeting SIRS criteria and stroke- like symptoms that poses a threat to life or bodily function. Slurred speech and confusion: This could be related to the hypotensive episode. Stroke workup underway. MRI brain pending. Continue Lipitor 20 mg PO QD and Coumadin to maintain INR 2.5-3.5. Telemetry monitoring. Advanced neurochecks. Neurology on board. SIRS, unclear etiology: Troponin trended and ACS ruled out. Hypotensive on admission with BP as low as 68/43, WBC count of 15.3. No identifiable source of infection. BP has improved. Blood culture pending. Cortisol 14. CRP 1.6. ESR within normal limits. No indication for antibiotics. Discontinue IVF. I have reviewed the following business system consultant notes: Neurology note, orthopedic surgery note, cardiology note reviewed. I have reviewed the results of the following tests: CBC, CMP, lipid panel, cortisol, TSH, flu, RSV, COVID-19, UDS, echocardiogram as above. I have ordered the following tests: MRI brain is pending. Final read of blood culture pending. I have discussed the care of this patient with the following independent historian: I have independently interpreted the following test below: I have discussed the management of this patient with the following physician: Case was discussed with neurology Dr. Lee, symptoms likely related to hypotension. Objective - Vital Signs Vital signs: Vital Signs Temp 98.6 F 12/12/22 08:00 Pulse 73 12/12/22 08:00 Resp 20 12/12/22 08:00 BP 156/72 12/12/22 08:00 Pulse Ox 98 12/12/22 08:00 FiO2 Intake & Output 12/11/22 12/12/22 12/12/22 18:59 06:59 18:59 Intake Total 619.865 Balance 619.865 Weight 108.862 kg Intake: Intake, IV Titration 79.865 Amount Heparin Sod,Pork in 0.45% 79.865 NaCl 25,000 unit In 0.45 % NaCl 1 250ml.bag @ 9.19 UNITS/KG/HR 10.004 mls/ hr IV .Q24H DAYNE Rx#: [id number] Oral 540 Other: Voiding Method Urinal Urinal # Voids 1 - Labs CBC & Chem 7: 12/12/22 04:38 12/12/22 04:38 Labs: Abnormal Lab Results - Last 24 Hours (Table) 12/11/22 12/11/22 12/11/22 Range/Units 12:44 15:33 20:27 RBC (4.30-5.90) m/uL Hgb (13.0-17.5) gm/dL Hct (39.0-53.0) % RDW (11.5-15.5) % Plt Count (150-450) k/uL PT 18.3 H 19.9 H (9.0-12.0) sec INR 1.9 H 2.0 H (<1.2) APTT (22.0-30.0) sec Chloride (98-107) mmol/L BUN (9-20) mg/dL C-Reactive Protein 1.6 H (<1.0) mg/dL Total Protein (6.3-8.2) g/dL Triglycerides 287.00 H (0.00-149.00) mg/dL Cholesterol 211.00 H (0.00-200.00) mg/dL VLDL Cholesterol, Calc 57.40 H (5.00-40.00) mg/dL HDL Cholesterol 28.40 L (40.00-60.00) mg/dL 12/11/22 12/12/22 12/12/22 Range/Units 21:48 04:38 04:38 RBC 4.25 L (4.30-5.90) m/uL Hgb 11.3 L (13.0-17.5) gm/dL Hct 35.2 L (39.0-53.0) % RDW 17.0 H (11.5-15.5) % Plt Count 132 L (150-450) k/uL PT (9.0-12.0) sec INR (<1.2) APTT 34.1 H (22.0-30.0) sec Chloride 112 H (98-107) mmol/L BUN 25 H (9-20) mg/dL C-Reactive Protein (<1.0) mg/dL Total Protein 6.1 L (6.3-8.2) g/dL Triglycerides (0.00-149.00) mg/dL Cholesterol (0.00-200.00) mg/dL VLDL Cholesterol, Calc (5.00-40.00) mg/dL HDL Cholesterol (40.00-60.00) mg/dL 12/12/22 Range/Units 04:38 RBC (4.30-5.90) m/uL Hgb (13.0-17.5) gm/dL Hct (39.0-53.0) % RDW (11.5-15.5) % Plt Count (150-450) k/uL PT 22.1 H (9.0-12.0) sec INR 2.3 H (<1.2) APTT 64.4 H (22.0-30.0) sec Chloride (98-107) mmol/L BUN (9-20) mg/dL C-Reactive Protein (<1.0) mg/dL Total Protein (6.3-8.2) g/dL Triglycerides (0.00-149.00) mg/dL Cholesterol (0.00-200.00) mg/dL VLDL Cholesterol, Calc (5.00-40.00) mg/dL HDL Cholesterol (40.00-60.00) mg/dL
[2022-12-12] MEDS: ATORVASTATIN 20 MG TAB PO SCH (18:20)
[2022-12-12] MEDS: WARFARIN 10 MG TAB PO SCH (18:20)
[2022-12-13] MEDS: METOPROLOL TARTRATE 25 MG TAB PO SCH ×2 (06:11→17:01)
[2022-12-13 08:03] LABS: INR 2.3 (<1.2); Partial Thromboplastin Time 31.4 sec (22.0-30.0); Prothrombin Time 22.1 sec (9.0-12.0)
[2022-12-13] MEDS: lisinopriL 20 MG TAB PO SCH (08:25)
--- NOTE | 2022-12-13 10:13 | P.PN ---
Subjective Progress Note Date: 12/13/22 History of present illness: 52-year-old gentleman with history of I aortic valve and root replacement who is on long-term Coumadin presented to Hospital with symptoms of not feeling well dizziness and transient inability to speak and unstable gait. They thought he may have had a TIA and he was brought in as a "stroke. INR is subtherapeutic at 1.8. At the time of my evaluation this morning in the emergency room on his neurological symptoms have resolved. He does not have chest pain difficulty in breathing palpitations dizziness syncope. There is no history of leg edema PND or orthopnea. There is no prior history of CVA. On his initial presentation patient was hypotensive. His blood pressures dropped into the 60s. He received fluids and at the time of my evaluation his blood pressure appears normal. Is currently undergoing workup for possible adrenal insufficiency. He underwent a computed tomography scan of the chest that was negative for dissection. His aortic root is mildly dilated. He has had blood cultures. White cell count is elevated of unclear clinical significance. I will obtain a 2-D echo to assess the prosthetic valve. He is on multiple antihypertensives and probably his hypotension is iatrogenic. 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 His aortic valve was replaced in 2004. Past medical history is significant for hypertension dyslipidemia I aortic valve root replacement and Coumadin therapy . Medications at home include enalapril simvastatin Coumadin hydrochlorothiazide and metoprolol . Patient is ALLERGIC to penicillin family history is negative for premature coronary artery disease social history is significant for marijuana use. Patient states that he uses marijuana about 5 hours prior to this. There is no history of redo should use of and he denies tobacco smoking 12/12 Patient is seen today and remains in the emergency center. He is on heparin drip which will be discontinued. Heart rate is in the 60s and 70s, INR 2.3. Patient is complaining of dizziness as well as pain in his back and down his le gs which is interfering with his activity and walking. Other lab work reveals WBC 6, hemoglobin 11.3, potassium 4.3, BUN 25 and creatinine 0.91. Triglycerides 287, LDL 125, cholesterol 211. Blood cultures are status received. Echocardiogram reveals EF of 55-60%, mildly increased left ventricular wall thickness, mild right ventricular dilation, normally functioning prosthetic aortic valve, aortic root dilated 5.1 cm. 12/13 There was concern regarding the aortic root dilation that was found on e chocardiogram. 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 Blood pressure readings are much improved 114/70-231/61, heart rate in the 60s and 70s. Repeat blood work reveals INR 2.3. Blood culture no growth at 24 hours. We added a consult yesterday for orthopedic spine and lumbar spine CAT scan was ordered which revealed no evidence of fracture of the lumbar spine. L4-L5 disc herniation. Arterial ultrasound of lower extremity revealed elevated bilateral MUNDO can be associated with calcified vasculature. Correlate clinically. Normal TBI indices. Patient has not required any Antivert. Examination patient is comfortable at rest vital signs are stable there is a jugular venous distention carotid upstroke is normal there is no bruit chest exam reveals good air entry bilaterally heart exam reveals first and second heart sounds no gallop prosthetic valve sound is clearly abdomen is soft exam extremities did not reveal any edema pulses are palpable HOLISTIC NUTRITIONIST exam did not reveal focal neurological deficits Assessment and plan: Hypotension elevated white cell count acute renal insufficiency status post mechanical aortic valve replacement Back pain and leg pain Vertigo plan: Continue back on Lopressor at a lower dose of 25 mg twice daily and also enalapril at a lower dose of 5 mg twice daily Continue Coumadin pharmacy dosing Patient is cleared from cardiology for discharge with the above changes to his h ome blood pressure medications. Patient may follow-up in the office with Dr. Carmen Chávez in 3 weeks. Primary care to continue to monitor Coumadin/INR. Nurse practitioner note has been reviewed, I agree with documented findings and plan of care. Patient was seen and examined. Objective - Vital Signs Vital signs: Vital Signs Temp 97.7 F 12/12/22 20:00 Pulse 63 12/13/22 04:00 Resp 16 12/13/22 04:00 BP 131/61 12/13/22 04:00 Pulse Ox 96 12/13/22 09:33 FiO2 Intake & Output 12/12/22 12/13/22 12/13/22 18:59 06:59 18:59 Intake Total 420 540 180 Balance 420 540 180 Intake: Oral 420 540 180 Other: Voiding Method Urinal Urinal # Voids 1 1 - Labs CBC & Chem 7: 12/12/22 04:38 12/12/22 04:38 Labs: Abnormal Lab Results - Last 24 Hours (Table) 12/13/22 Range/Units 06:30 PT 22.1 H (9.0-12.0) sec INR 2.3 H (<1.2) APTT 31.4 H (22.0-30.0) sec Microbiology - Last 24 Hours (Table) 12/11/22 06:00 Blood Culture - Preliminary Blood 12/11/22 05:50 Blood Culture - Preliminary Blood
--- NOTE | 2022-12-13 11:38 | P.PN ---
Subjective Progress Note Date: 12/13/22 The patient seen at bedside and denies of any and new neurological issues. He feels he is doing well. I spoke with the patient primary attending as well as the cardiology team and they felt the hypotensive episode is likely due to his medication and he was on multiple antihypertensives that can lower his blood pressure. Objective - Vital Signs Vital signs: Vital Signs Temp 98.2 F 12/13/22 08:00 Pulse 63 12/13/22 08:00 Resp 20 12/13/22 08:00 BP 114/72 12/13/22 08:00 Pulse Ox 96 12/13/22 09:33 FiO2 Intake & Output 12/12/22 12/13/22 12/13/22 18:59 06:59 18:59 Intake Total 420 540 180 Balance 420 540 180 Intake: Oral 420 540 180 Other: Voiding Method Urinal Urinal # Voids 1 1 - Exam GENERAL: The patient is lying in bed and is not in acute distress. NEUROLOGICAL: Higher mental function: The patient is awake, alert, oriented to self, place and time. Patient is following commands. No aphasia and no neglect. Cranial nerves: The pupils are round, equal and reactive to light and accommodation. Visual coffey are full to confrontation throughout. Extraocular movement is intact no nystagmus is noted. Facial sensation is normal to touch throughout. The facial strength is normal throughout. Hearing is normal bilaterally to hand rub. Tongue is midline and moved [id number] without any difficulty. No dysarthria is noted. Shoulder shrug is normal bilaterally. Motor: The strength is 5 over 5 throughout. Normal tone and bulk. Cerebellum: Normal finger to nose heel to cummins bilaterally. Sensation: Sensation is normal to touch throughout. Reflexes (right/left): 2+ throughout. Plantars are downgoing bilaterally. Some of the workup during his hospital visit consisted of: He has been hypotensive as low as in the 60s to 70s systolic and diastolic is a 30-40s--improved. White blood cell initially was 16.2 thousand and repeat is 15.3 and slightly neutrophilic.--resolved Initial plasm lactic acid and is 2.1 repeated is normalized. Lipid panel is triglycerides 287, cholesterol 211, LDLs 125, HDL is 28. TSH is 1.550 Phosphorus is 5.1 calcium is 9.8 ESR is 8. CRP is is 1.6 and normal is less than 1.0. Urine drug screen is positive for marijuana CT head w/o: It is reported as No evidence of acute intracranial pathology. I personally reviewed the CT of the head and I agree there is no acute or subacute ischemia there is no bleed. CTA head and neck is negative. CT angiography of the chest is reported as ascending aortic aneurysm without evidence of dissection, status post aortic valve replacement. Finding concern for bronchitis which may be due to infectious or inflammatory etiologies. No consolidation. 2-D echo was reported as left ventricular ejection fraction 55-60%. Mildly increased left ventricular wall thickness. Mildly right ventricle dilation. Aortic dilated of 5.1 cm - Labs CBC & Chem 7: 12/12/22 04:38 12/12/22 04:38 Labs: Abnormal Lab Results - Last 24 Hours (Table) 12/13/22 Range/Units 06:30 PT 22.1 H (9.0-12.0) sec INR 2.3 H (<1.2) APTT 31.4 H (22.0-30.0) sec Microbiology - Last 24 Hours (Table) 12/11/22 06:00 Blood Culture - Preliminary Blood 12/11/22 05:50 Blood Culture - Preliminary Blood Assessment and Plan Assessment: This is a 52-year-old gentleman with history of aortic valve replacement on long-term Coumadin who presented because of feeling dizziness with fatigue, gene ralized weakness difficulty standing up and feeling lightheaded upon standing up and there is a concern that the patient came in confused slurring his speech. On presentation his INR was subtherapeutic at 1.8. Patient presented the hypotensive as low as 6670 systolic and diastolic 30s to 40s Episode of lightheadedness with fatigue/generalized weakness with concern of speech difficulty and confusion likely due to underlying hypotensive. CT of the head, CTA of the head and neck is negative. CT angiography of the chest is reported as bronchitis. Had dilated aortic root on 2D echo Hypotension with leukocytosis. It was felt by cardiology and primary hypotensive was due to medication effect (antihypertensive). Rule out underlying sepsis. Acute kidney injury Dyslipidemia Hypertriglyceridemia History of aortic valve replacement on long-term Coumadin and INR subtherapeutic of 1.8 Chronic low back pain History of hypertension Plan: Pending MRI of the brain with and without. Blood culture: no growth after 24 hours. 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 We'll defer that further management to the cardiology/cardiothoracic team if needed.. CT lumbar spine is ordered since the patient stated that he is having low back pain but denies any new deficit. Ordered to rule out any significant stenosis. CT lumbar is reported as no evidence of fracture of the lumbar spine. L4-L5 disc herniation with broad-based disc bulge resulting in mild to moderate ce ntral canal stenosis. Bilateral facet arthropathy also demonstrated with minimal bilateral neural foraminal stenosis. Multilevel degenerative disc disease and facet arthropathy. Seems cardiology consulted orthopedic surgeon (Dr. Olivares) for his low back pain. Cardiology is consulted We'll defer the use of anticoagulation to the cardiology team Every 4 hours neuro checks Consulted PT and OT for gait training We'll defer the rest of the medical management to primary team The plan was discussed with patient and primary team. MR the brain is negative then no further neurological workup is needed. Time with Patient: Less than 30
--- NOTE | 2022-12-13 13:06 | P.PN ---
Subjective Progress Note Date: 12/13/22 Patient is a 52-year-old male with a PMH of thoracic aortic aneurysm, status post aortic valve replacement on Lovenox, hypertension, and hyperlipidemia who presents to the emergency room for generalized weakness, slurred speech, and diaphoresis. The patient reports that he was in his usual state of health until he went to some family members house earlier in the evening with a noted that he was sweating. The patient then proceeded to go home but later in the night developed slurring of his speech, generalized fatigue, and blurry vision. He subsequently decided to come to the emergency room. Code stroke was activated upon arrival. Upon arrival, the patient's vitals were 96/60 with pulse 85 and SpO2 97% on room air with temperature 98.0F. The patient's subsequently vitals were BP 68/[address] angiogram thoracic aorta revealed an ascending aortic aneurysm 41 mm without dissection or rupture. CT angiogram abdomen and pelvis revealed hepatic steatosis but otherwise unremarkable. CT brain was unremarkable. EKG revealed sinus rhythm at 80 bpm with T-wave inversion in leads V4 to V6 as well as 2, 3, and aVF. Laboratory evaluation was remarkable for leukocytosis of 16.2, lactic acid 2.1, BUN 34, creatinine 2.17 (previously 0.8). 12/12 Patient was seen and examined. He reports no complaints. Worried about his bills. States he has slurred speech at baseline. BP 156/72, P 73, T 98.6F, 98% on RA. CBC shows Hg 11.3, Plt 132. INR 2.3. CMP Cl 112, BUN 25. Lipid panel T. Chol 211, TG 287, HDL 28.4, VLDV 57.4. TSH 1.55. Cortisol 14. Flu, RSV, COVID 19 negative. UDS + marijuana. Echo shows EF 55-60% with normal functioning prosthetic AV and aortic root dilated at 5.1 cm. Heparin drip discontinued. Blood culture preliminary negative. 12/13 Patient was seen and examined. He reports no complaints. INR is 2.3. Case was discussed with Yamilet JOHNSON who states Cardio has signed off on the patient. Case was discussed with Neurology who states patient is cleared for discharge after MRI brain is back, his symptoms were likely related to hypotension. Most recent BP 123/79 P 62, RR 20, T98.1F, 95% on RA. Pertinent studies include CXR, CT brain, CT thoracic aorta, CTA head and neck, Echo. General: non toxic, no distress, appears at stated age Derm: warm, dry Head: atraumatic, normocephalic, symmetric Eyes: EOMI, no lid lag, anicteric sclera Cardiovascular: S1S2 reg, no murmur Lungs: CTA bilateral, no rhonchi, no rales , no accessory muscle use Ext: no gross muscle atrophy, no edema, no contractures Neuro: no focal neuro deficits Psych: Alert, oriented, appropriate affect Slurred speech and confusion SIRS, unclear etiology Resolved: Lactic acidosis, ALO, Hypotension Based on my assessment of this patient, this patient meets a high complexity level of care. Patient has an acute diagnosis of hypotension meeting SIRS criteria and stroke- like symptoms that poses a threat to life or bodily function. Slurred speech and confusion: Symptoms likely related to hypotension. This could be related to the hypotensive episode. Stroke workup underway. MRI brain pending. Continue Lipitor 20 mg PO QD and Coumadin to maintain INR 2.5-3.5. Telemetry monitoring. Advanced neurochecks. Neurology on board. SIRS, unclear etiology: Troponin trended and ACS ruled out. Hypotensive on admission with BP as low as 68/43, WBC count of 15.3. No identifiable source of infection. BP has improved, likely due to overtitration of antihypertensive medications. Blood culture prelim negative. Cortisol 14. CRP 1.6. ESR within normal limits. No indication for antibiotics. Discontinue IVF. I have reviewed the following production consultant notes: Neurology note, cardiology note reviewed as above. I have reviewed the results of the following tests: INR as above. I have ordered the following tests: MRI brain is pending. Final read of blood culture pending. I have discussed the care of this patient with the following independent historian: I have independently interpreted the following test below: I have discussed the management of this patient with the following physician: Case was discussed with neurology Dr. Lee and well as Yamilet JOHNSON with Cardiology. Objective - Vital Signs Vital signs: Vital Signs Temp 98.1 F 12/13/22 11:36 Pulse 62 12/13/22 11:36 Resp 20 12/13/22 11:36 BP 123/79 12/13/22 11:36 Pulse Ox 95 12/13/22 11:36 FiO2 Intake & Output 12/12/22 12/13/22 12/13/22 18:59 06:59 18:59 Intake Total 420 540 180 Balance 420 540 180 Intake: Oral 420 540 180 Other: Voiding Method Urinal Urinal # Voids 1 1 - Labs CBC & Chem 7: 12/12/22 04:38 12/12/22 04:38 Labs: Abnormal Lab Results - Last 24 Hours (Table) 12/13/22 Range/Units 06:30 PT 22.1 H (9.0-12.0) sec INR 2.3 H (<1.2) APTT 31.4 H (22.0-30.0) sec Microbiology - Last 24 Hours (Table) 12/11/22 06:00 Blood Culture - Preliminary Blood 12/11/22 05:50 Blood Culture - Preliminary Blood
[2022-12-13] MEDS: WARFARIN 10 MG TAB PO SCH (17:01)
[2022-12-13] MEDS: ATORVASTATIN 20 MG TAB PO SCH (17:01)
--- NOTE | 2022-12-13 17:12 | MR ---
EXAMINATION TYPE: MR brain wo/w con DATE OF EXAM: 12/13/2022 3:38 PM CLINICAL INDICATION:Male, 52 years old with history of speech difficulty; Speech Difficulty COMPARISON: CT brain 12/11/2022 TECHNIQUE: Multi planar, multi sequence imaging was performed through the brain including: T1, T2, In version recovery, susceptibility weighted imaging and gradient echo imaging and Diffusion weighted im aging. The patient was then given intravenous contrast and multi planar, T1 fat-saturation images wer e obtained. IV Contrast: 11.5ml cc Gadavist FINDINGS: Restricted diffusion within the left cerebellar hemisphere inferiorly. Additional focus of restricted diffusion within the left occipital lobe and scattered throughout the bilateral frontal and parietal lobe cortices near the butler-white matter junction. Intracranial arterial flow voids are maintained. Midline structures show no abnormality. The susceptibility weighted images do not reveal any evidence for micro-hemorrhage. After administration of gadolinium, no abnormal enhancement is seen. The bone marrow signal is within normal limits. Paranasal sinuses and mastoid air cells: Mild mucosal thickening with mucous retention cyst left maxi llary sinus. Visualized orbits: Orbital contents are intact. IMPRESSION: 1. Scattered areas of microinfarct as well as larger areas within the left occipital lobe and left i nferior cerebellum. Correlate for embolic phenomenon. 2. No abnormal postcontrast enhancement.
[2022-12-14] MEDS: METOPROLOL TARTRATE 25 MG TAB PO SCH ×2 (06:10→16:32)
[2022-12-14] MEDS: lisinopriL 20 MG TAB PO SCH (08:00)
--- NOTE | 2022-12-14 08:23 | P.PN ---
Subjective Progress Note Date: 12/14/22 History of present illness: 52-year-old gentleman with history of I aortic valve and root replacement who is on long-term Coumadin presented to Hospital with symptoms of not feeling well dizziness and transient inability to speak and unstable gait. They thought he may have had a TIA and he was brought in as a "stroke. INR is subtherapeutic at 1.8. At the time of my evaluation this morning in the emergency room on his neurological symptoms have resolved. He does not have chest pain difficulty in breathing palpitations dizziness syncope. There is no history of leg edema PND or orthopnea. There is no prior history of CVA. On his initial presentation patient was hypotensive. His blood pressures dropped into the 60s. He received fluids and at the time of my evaluation his blood pressure appears normal. Is currently undergoing workup for possible adrenal insufficiency. He underwent a computed tomography scan of the chest that was negative for dissection. His aortic root is mildly dilated. He has had blood cultures. White cell count is elevated of unclear clinical significance. I will obtain a 2-D echo to assess the prosthetic valve. He is on multiple antihypertensives and probably his hypotension is iatrogenic. 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 His aortic valve was replaced in 2004. Past medical history is significant for hypertension dyslipidemia I aortic valve root replacement and Coumadin therapy . Medications at home include enalapril simvastatin Coumadin hydrochlorothiazide and metoprolol . Patient is ALLERGIC to penicillin family history is negative for premature coronary artery disease social history is significant for marijuana use. Patient states that he uses marijuana about 5 hours prior to this. There is no history of redo should use of and he denies tobacco smoking 12/12 Patient is seen today and remains in the emergency center. He is on heparin drip which will be discontinued. Heart rate is in the 60s and 70s, INR 2.3. Patient is complaining of dizziness as well as pain in his back and down his le gs which is interfering with his activity and walking. Other lab work reveals WBC 6, hemoglobin 11.3, potassium 4.3, BUN 25 and creatinine 0.91. Triglycerides 287, LDL 125, cholesterol 211. Blood cultures are status received. Echocardiogram reveals EF of 55-60%, mildly increased left ventricular wall thickness, mild right ventricular dilation, normally functioning prosthetic aortic valve, aortic root dilated 5.1 cm. 12/13 There was concern regarding the aortic root dilation that was found on e chocardiogram. 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 Blood pressure readings are much improved 114/70-231/61, heart rate in the 60s and 70s. Repeat blood work reveals INR 2.3. Blood culture no growth at 24 hours. We added a consult yesterday for orthopedic spine and lumbar spine CAT scan was ordered which revealed no evidence of fracture of the lumbar spine. L4-L5 disc herniation. Arterial ultrasound of lower extremity revealed elevated bilateral MUNDO can be associated with calcified vasculature. Correlate clinically. Normal TBI indices. Patient has not required any Antivert. 12/14 Yesterday, patient underwent MRI of the brain that revealed scattered areas of microinfarct as well as larger areas within the left occipital lobe and left inferior cerebellum. Correlate for embolic phenomenon. No abnormal postcontrast enhancement. Attending has reached out and requested VAMSI. This has been discussed with the patient and he is in agreement. He did eat breakfast this morning so we will try to accommodate him later in the day. Patient denies having any dizziness. He denies any weakness, difficulty speaking. INR is 2.3. Examination patient is comfortable at rest vital signs are stable there is a jugular venous distention carotid upstroke is normal there is no bruit chest exam reveals good air entry bilaterally heart exam reveals first and second heart sounds no gallop prosthetic valve sound is clearly abdomen is soft exam extremities did not reveal any edema pulses are palpable COATING ENGINEER exam did not reveal focal neurological deficits Assessment and plan: Hypotension elevated white cell count acute renal insufficiency status post mechanical aortic valve replacement Back pain and leg pain Vertigo Possible embolic stroke plan: Continue back on Lopressor at a lower dose of 25 mg twice daily and also enalapril at a lower dose of 5 mg twice daily Continue Coumadin pharmacy dosing Patient will be scheduled for VAMSI tomorrow. At time of discharge, patient may follow-up in the office with Dr. Carmen Chávez in 2 weeks. Primary care to continue to monitor Coumadin/INR. Nurse practitioner note has been reviewed, I agree with documented findings and plan of care. Patient was seen and examined. Objective - Vital Signs Vital signs: Vital Signs Temp 98.1 F 12/14/22 07:58 Pulse 56 L 12/14/22 07:58 Resp 18 12/14/22 07:58 BP 124/71 12/14/22 07:58 Pulse Ox 95 12/14/22 07:58 FiO2 Intake & Output 12/13/22 12/14/22 12/14/22 18:59 06:59 18:59 Intake Total 1080 540 Balance 1080 540 Weight 124.8 kg Intake: Oral 1080 540 Other: Voiding Method Urinal # Voids 1 - Labs CBC & Chem 7: 12/12/22 04:38 12/12/22 04:38 Labs: Microbiology - Last 24 Hours (Table) 12/11/22 06:00 Blood Culture - Preliminary Blood 12/11/22 05:50 Blood Culture - Preliminary Blood
[2022-12-14 08:31] LABS: INR 2.3 (<1.2); Prothrombin Time 22.5 sec (9.0-12.0)
--- NOTE | 2022-12-14 12:54 | P.PN ---
Subjective Progress Note Date: 12/14/22 I am following up with patient and he states he is about the same. Denies any neurological issues. He feels speech is about the same. Objective - Vital Signs Vital signs: Vital Signs Temp 98.1 F 12/14/22 07:58 Pulse 61 12/14/22 11:55 Resp 18 12/14/22 11:55 BP 167/80 12/14/22 11:55 Pulse Ox 98 12/14/22 11:55 FiO2 Intake & Output 12/13/22 12/14/22 12/14/22 18:59 06:59 18:59 Intake Total 1080 540 190 Balance 1080 540 190 Weight 124.8 kg Intake: IV 10 Invasive Line 2 10 Oral 1080 540 180 Other: Voiding Method Urinal Urinal # Voids 1 - Exam GENERAL: The patient is lying in bed and is not in acute distress. NEUROLOGICAL: Higher mental function: The patient is awake, alert, oriented to self, place and time. Patient is following commands. Sidney has mild aphasia (but he states this is abseline). No neglect. Cranial nerves: The pupils are round, equal and reactive to light and accommodation. Visual coffey are full to confrontation throughout. Extraocular movement is intact no nystagmus is noted. Facial sensation is normal to touch throughout. The facial strength is normal throughout. Hearing is normal bilaterally to hand rub. Tongue is midline and moved [id number] without any difficulty. No dysarthria is noted. Shoulder shrug is normal bilaterally. Motor: The strength is 5 over 5 throughout. Normal tone and bulk. Cerebellum: Normal finger to nose heel to cummins bilaterally. Sensation: Sensation is normal to touch throughout. Reflexes (right/left): 2+ throughout. Plantars are downgoing bilaterally. Some of the workup during his hospital visit consisted of: He has been hypotensive as low as in the 60s to 70s systolic and diastolic is a 30-40s--improved. White blood cell initially was 16.2 thousand and repeat is 15.3 and slightly neutrophilic.--resolved Initial plasm lactic acid and is 2.1 repeated is normalized. Lipid panel is triglycerides 287, cholesterol 211, LDLs 125, HDL is 28. TSH is 1.550 Phosphorus is 5.1 calcium is 9.8 ESR is 8. CRP is is 1.6 and normal is less than 1.0. Urine drug screen is positive for marijuana CT head w/o: It is reported as No evidence of acute intracranial pathology. I personally reviewed the CT of the head and I agree there is no acute or subacute ischemia there is no bleed. CTA head and neck is negative. CT angiography of the chest is reported as ascending aortic aneurysm without evidence of dissection, status post aortic valve replacement. Finding concern for bronchitis which may be due to infectious or inflammatory etiologies. No consolidation. 2-D echo was reported as left ventricular ejection fraction 55-60%. Mildly increased left ventricular wall thickness. Mildly right ventricle dilation. Aortic dilated of 5.1 cm MRI Brain is reported as scattered areas of microinfacrt as well as larger areas within the left occipital lobe and let inferior cerebellu. Correlate for embolic phenomenon. No abnormal postcontrast enhancement. - Labs CBC & Chem 7: 12/12/22 04:38 12/12/22 04:38 Labs: Abnormal Lab Results - Last 24 Hours (Table) 12/14/22 Range/Units 06:49 PT 22.5 H (9.0-12.0) sec INR 2.3 H (<1.2) Microbiology - Last 24 Hours (Table) 12/11/22 06:00 Blood Culture - Preliminary Blood 12/11/22 05:50 Blood Culture - Preliminary Blood Assessment and Plan Assessment: This is a 52-year-old gentleman with history of aortic valve replacement on long-term Coumadin who presented because of feeling dizziness with fatigue, generalized weakness difficulty standing up and feeling lightheaded upon standing up and there is a concern that the patient came in confused slurring his speech. On presentation his INR was subtherapeutic at 1.8. Patient presented the hypotensive as low as [id number] systolic and diastolic 30s to 40s Acute ischemic stroke with scatter bilateral hemisphere, especially left occipital and left interior cerebellum (presented with lightheadedness with fatigue/generalized weakness with concern of speech difficulty and confusion). No IV tpa since outside window. Etiology of stroke seems cardioembolic. He has hx of aortic valve replaced and INR was subtherapeutic. CT of the head, CTA of the head and neck is negative. CT angiography of the chest is reported as bronchitis. Had dilated aortic root on 2D echo. Hypotension with leukocytosis. It was felt by cardiology and primary hypotensive was due to medication effect (antihypertensive). Rule out underlying sepsis. Acute kidney injury Dyslipidemia Hypertriglyceridemia History of aortic valve replacement on long-term Coumadin and INR subtherapeutic of 1.8 Chronic low back pain History of hypertension Plan: Pending VAMSI. Patient is on Coumadin. He is on Lipitor 20mg qhs. Blood culture: no growth after 24 hours. 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 We'll defer that further management to the cardiology/cardiothoracic team if needed.. CT lumbar spine is ordered since the patient stated that he is having low back pain but denies any new deficit. Ordered to rule out any significant stenosis. CT lumbar is reported as no evidence of fracture of the lumbar spine. L4-L5 disc herniation with broad-based disc bulge resulting in mild to moderate central canal stenosis. Bilateral facet arthropathy also demonstrated with minimal bilateral neural foraminal stenosis. Multilevel degenerative disc disease and facet arthropathy. Seems cardiology consulted orthopedic surgeon (Dr. Olivares) for his low back pain. Cardiology is consulted We'll defer the use of anticoagulation to the cardiology team Every 4 hours neuro checks Cardiac monitoring PT and OT are consulted. We'll defer the rest of the medical management to primary team For DVT prophylaxis: On coumadin. The plan was discussed with patient and primary team. Time with Patient: Less than 30
--- NOTE | 2022-12-14 13:35 | P.PN ---
Subjective Progress Note Date: 12/14/22 Patient is a 52-year-old male with a PMH of thoracic aortic aneurysm, status post aortic valve replacement on Lovenox, hypertension, and hyperlipidemia who presents to the emergency room for generalized weakness, slurred speech, and diaphoresis. The patient reports that he was in his usual state of health until he went to some family members house earlier in the evening with a noted that he was sweating. The patient then proceeded to go home but later in the night developed slurring of his speech, generalized fatigue, and blurry vision. He subsequently decided to come to the emergency room. Code stroke was activated upon arrival. Upon arrival, the patient's vitals were 96/60 with pulse 85 and SpO2 97% on room air with temperature 98.0F. The patient's subsequently vitals were BP 68/[address] angiogram thoracic aorta revealed an ascending aortic aneurysm 41 mm without dissection or rupture. CT angiogram abdomen and pelvis revealed hepatic steatosis but otherwise unremarkable. CT brain was unremarkable. EKG revealed sinus rhythm at 80 bpm with T-wave inversion in leads V4 to V6 as well as 2, 3, and aVF. Laboratory evaluation was remarkable for leukocytosis of 16.2, lactic acid 2.1, BUN 34, creatinine 2.17 (previously 0.8). 12/12 Patient was seen and examined. He reports no complaints. Worried about his bills. States he has slurred speech at baseline. BP 156/72, P 73, T 98.6F, 98% on RA. CBC shows Hg 11.3, Plt 132. INR 2.3. CMP Cl 112, BUN 25. Lipid panel T. Chol 211, TG 287, HDL 28.4, VLDV 57.4. TSH 1.55. Cortisol 14. Flu, RSV, COVID 19 negative. UDS + marijuana. Echo shows EF 55-60% with normal functioning prosthetic AV and aortic root dilated at 5.1 cm. Heparin drip discontinued. Blood culture preliminary negative. 12/13 Patient was seen and examined. He reports no complaints. INR is 2.3. Case was discussed with Yamilet JOHNSON who states Cardio has signed off on the patient. Case was discussed with Neurology who states patient is cleared for discharge after MRI brain is back, his symptoms were likely related to hypotension. Most recent BP 123/79 P 62, RR 20, T98.1F, 95% on RA. 8/3 Patient was seen and examined. No acute events overnight. No changes in cl inical condition. MRI brain done yesterday shows scattered areas of micro- infarct as well as larger areas within the left occipital lobe and left inferior cerebellum concerning for embolic phenomenon. Case discussed with Yamilet JOHNSON, plans for VAMSI tomorrow. Case discussed with neurology, agreeable to the plan. His INR is 2.3. Pertinent studies include CXR, CT brain, CT thoracic aorta, CTA head and neck, Echo. General: non toxic, no distress, appears at stated age Derm: warm, dry Head: atraumatic, normocephalic, symmetric Eyes: EOMI, no lid lag, anicteric sclera Cardiovascular: S1S2 reg, no murmur Lungs: CTA bilateral, no rhonchi, no rales , no accessory muscle use Ext: no gross muscle atrophy, no edema, no contractures Neuro: no focal neuro deficits Psych: Alert, oriented, appropriate affect Acute CVA Subtherapeutic INR SIRS, unclear etiology Resolved: Lactic acidosis, ALO, Hypotension Based on my assessment of this patient, this patient meets a high complexity level of care. Patient has an acute diagnosis of hypotension meeting SIRS criteria and stroke- like symptoms that poses a threat to life or bodily function. Slurred speech and confusion: Symptoms likely related to hypotension. This could be related to the hypotensive episode. Stroke workup underway. MRI brain pendin g. Continue Lipitor 20 mg PO QD and Coumadin to maintain INR 2.5-3.5. Telemetry monitoring. Advanced neurochecks. Neurology on board. SIRS, unclear etiology: Troponin trended and ACS ruled out. Hypotensive on admission with BP as low as 68/43, WBC count of 15.3. No identifiable source of infection. BP has improved, likely due to overtitration of antihypertensive medications. Blood culture prelim negative. Cortisol 14. CRP 1.6. ESR within normal limits. No indication for antibiotics. Discontinue IVF. I have reviewed the following websphere consultant notes: Neurology note, cardiology note reviewed as above. I have reviewed the results of the following tests: INR and MRI brain as above. I have ordered the following tests: I have discussed the care of this patient with the following independent historian: I have independently interpreted the following test below: I have discussed the management of this patient with the following physician: Case was discussed with neurology Dr. Lee and well as Yamilet JOHNSON with Cardiology. Objective - Vital Signs Vital signs: Vital Signs Temp 98.1 F 12/14/22 07:58 Pulse 61 12/14/22 11:55 Resp 18 12/14/22 11:55 BP 167/80 12/14/22 11:55 Pulse Ox 98 12/14/22 11:55 FiO2 Intake & Output 12/13/22 12/14/22 12/14/22 18:59 06:59 18:59 Intake Total 1080 540 190 Balance 1080 540 190 Weight 124.8 kg Intake: IV 10 Invasive Line 2 10 Oral 1080 540 180 Other: Voiding Method Urinal Urinal # Voids 1 2 - Labs CBC & Chem 7: 12/12/22 04:38 12/12/22 04:38 Labs: Abnormal Lab Results - Last 24 Hours (Table) 12/14/22 Range/Units 06:49 PT 22.5 H (9.0-12.0) sec INR 2.3 H (<1.2) Microbiology - Last 24 Hours (Table) 12/11/22 06:00 Blood Culture - Preliminary Blood 12/11/22 05:50 Blood Culture - Preliminary Blood
[2022-12-14] MEDS: ATORVASTATIN 20 MG TAB PO SCH (16:32)
[2022-12-14] MEDS: WARFARIN 10 MG TAB PO SCH (17:30)
[2022-12-14] MEDS ORDERED: WARFARIN 1 MG TAB PO ONE (18:00)
[2022-12-15 08:01] VITALS: PULSE 77
[2022-12-15] MEDS ORDERED: fentaNYL (PF) 50 MCG/ML 2 ML AMP ONE (08:30)
[2022-12-15 08:34] LABS: INR 2.2 (<1.2); Prothrombin Time 21.5 sec (9.0-12.0)
[2022-12-15] MEDS ORDERED: SODIUM CHLORIDE 0.9% 250 ML IV ONE (08:40)
[2022-12-15] MEDS ORDERED: BENZOCAINE SPRAY 1 CAN MUCOUS MEM ONE (08:57)
[2022-12-15] MEDS ORDERED: MIDAZOLAM 2 MG/2 ML VIAL IVP ONE (09:08)
[2022-12-15] MEDS ORDERED: fentaNYL (PF) 50 MCG/ML 2 ML AMP IVP ONE (09:08)
[2022-12-15] MEDS: METOPROLOL TARTRATE 25 MG TAB PO SCH ×2 (09:38→17:31)
[2022-12-15] MEDS: lisinopriL 20 MG TAB PO SCH (09:38)
--- NOTE | 2022-12-15 10:20 | ECHOT ---
TRANSESOPHAGEAL ECHOCARDIOGRAM INDICATION: TIA. PROCEDURE NOTE: After obtaining informed consent, transesophageal echocardiogram is performed in left lateral position using an Omniplane probe. Local and IV sedation were obtained using Xylocaine spray, 2 mg of Versed and 25 mcg of fentanyl. The patient tolerated the procedure well without any obvious immediate complications. FINDINGS: 1. There is no intracardiac thrombus within the left atrial appendage, left atrium, right atrium, or right ventricle. 2. Left ventricle has normal size and systolic function. 3. Left atrium appears enlarged. 4. Right atrium and right ventricle seen within normal limits. 5. Interatrial septum, there is no evidence of [id number] shunt by color-flow Doppler or [id number] shunt by agitated saline contrast study. Mitral valve shows mild mitral regurgitation. There is mild tricuspid regurgitation. There is a mechanical valve in aortic position that is functioning normally with trace aortic regurgitation. Root and ascending aorta appear aneurysmally dilated, measuring 4.4 cm. CONCLUSIONS: No intracardiac thrombus. Normal LV function. No evidence of shunting across the interatrial septum. MMODL / IJN: [id number] /
[2022-12-15] MEDS ORDERED: HEPARIN SOD,PORK IN 0.45% NACL 25,000 UNIT in 0.45% NACL 1 250ML.BAG IV SCH (12:45)
[2022-12-15] MEDS ORDERED: HEPARIN SODIUM 1,000 UN/ML (10ML VL) IV PRN (12:45)
--- NOTE | 2022-12-15 12:50 | P.PN ---
Subjective Progress Note Date: 12/15/22 Patient is a 52-year-old male with a PMH of thoracic aortic aneurysm, status post aortic valve replacement on Lovenox, hypertension, and hyperlipidemia who presents to the emergency room for generalized weakness, slurred speech, and diaphoresis. The patient reports that he was in his usual state of health until he went to some family members house earlier in the evening with a noted that he was sweating. The patient then proceeded to go home but later in the night developed slurring of his speech, generalized fatigue, and blurry vision. He subsequently decided to come to the emergency room. Code stroke was activated upon arrival. Upon arrival, the patient's vitals were 96/60 with pulse 85 and SpO2 97% on room air with temperature 98.0F. The patient's subsequently vitals were BP 68/[address] angiogram thoracic aorta revealed an ascending aortic aneurysm 41 mm without dissection or rupture. CT angiogram abdomen and pelvis revealed hepatic steatosis but otherwise unremarkable. CT brain was unremarkable. EKG revealed sinus rhythm at 80 bpm with T-wave inversion in leads V4 to V6 as well as 2, 3, and aVF. Laboratory evaluation was remarkable for leukocytosis of 16.2, lactic acid 2.1, BUN 34, creatinine 2.17 (previously 0.8). 12/12 Patient was seen and examined. He reports no complaints. Worried about his bills. States he has slurred speech at baseline. BP 156/72, P 73, T 98.6F, 98% on RA. CBC shows Hg 11.3, Plt 132. INR 2.3. CMP Cl 112, BUN 25. Lipid panel T. Chol 211, TG 287, HDL 28.4, VLDV 57.4. TSH 1.55. Cortisol 14. Flu, RSV, COVID 19 negative. UDS + marijuana. Echo shows EF 55-60% with normal functioning prosthetic AV and aortic root dilated at 5.1 cm. Heparin drip discontinued. Blood culture preliminary negative. 12/13 Patient was seen and examined. He reports no complaints. INR is 2.3. Case was discussed with Yamilet JOHNSON who states Cardio has signed off on the patient. Case was discussed with Neurology who states patient is cleared for discharge after MRI brain is back, his symptoms were likely related to hypotension. Most recent BP 123/79 P 62, RR 20, T98.1F, 95% on RA. 8/3 Patient was seen and examined. No acute events overnight. No changes in cl inical condition. MRI brain done yesterday shows scattered areas of micro- infarct as well as larger areas within the left occipital lobe and left inferior cerebellum concerning for embolic phenomenon. Case discussed with Yamilet JOHNSON, plans for VAMSI tomorrow. Case discussed with neurology, agreeable to the plan. His INR is 2.3. 12/15 Patient was seen and examined. Underwent VAMSI which did not show any vegetation or thrombus. Case was discussed extensively with Dr. Chávez, we have plans on starting him on a Heparin drip until his INR is between 2.5 and 3.5. Clinical condition unchanged. INR today is 2.2. Pertinent studies include CXR, CT brain, CT thoracic aorta, CTA head and neck, Echo. Pertinent procedures include VAMSI. General: non toxic, no distress, appears at stated age Derm: warm, dry Head: atraumatic, normocephalic, symmetric Eyes: EOMI, no lid lag, anicteric sclera Cardiovascular: S1S2 reg, no murmur Lungs: CTA bilateral, no rhonchi, no rales , no accessory muscle use Ext: no gross muscle atrophy, no edema, no contractures Neuro: no focal neuro deficits Psych: Alert, oriented, appropriate affect Acute CVA Subtherapeutic INR SIRS, unclear etiology Resolved: Lactic acidosis, ALO, Hypotension Based on my assessment of this patient, this patient meets a high complexity level of care. Patient has an acute diagnosis of hypotension meeting SIRS criteria and stroke- like symptoms that poses a threat to life or bodily function. CVA: Symptoms likely related to hypotension. This could be related to the hypotensive episode. Stroke workup underway. MRI brain described as above. Continue Lipitor 20 mg PO QD and Coumadin to maintain INR 2.5-3.5. Telemetry monitoring. Advanced neurochecks. Neurology on board. Start heparin drip while waiting for INR to hit 2.5-3.5 which was discussed with pharmacy. SIRS, unclear etiology: Troponin trended and ACS ruled out. Hypotensive on ad mission with BP as low as 68/43, WBC count of 15.3. No identifiable source of infection. BP has improved, likely due to overtitration of antihypertensive medications. Blood culture prelim negative. Cortisol 14. CRP 1.6. ESR within normal limits. No indication for antibiotics. Discontinue IVF. I have reviewed the following remediation bioanalytics consultant notes: I have reviewed the results of the following tests: INR and VAMSI. I have ordered the following tests: INR for tomorrow morning. I have discussed the care of this patient with the following independent historian: I have independently interpreted the following test below: I have discussed the management of this patient with the following physician: Case was discussed with Dr. Chávez as above. Objective - Vital Signs Vital signs: Vital Signs Temp 97.6 F 12/15/22 11:43 Pulse 77 12/15/22 07:59 Resp 18 12/15/22 11:43 BP 128/66 12/15/22 11:43 Pulse Ox 94 L 12/15/22 11:43 FiO2 Intake & Output 12/14/22 12/15/22 12/15/22 18:59 06:59 18:59 Intake Total 480 20 95 Balance 480 20 95 Intake: IV 20 20 95 Invasive Line 2 20 20 20 Oral 460 Other: Voiding Method Urinal Urinal Urinal # Voids 2 1 - Labs CBC & Chem 7: 12/12/22 04:38 12/12/22 04:38 Labs: Abnormal Lab Results - Last 24 Hours (Table) 12/15/22 Range/Units 07:07 PT 21.5 H (9.0-12.0) sec INR 2.2 H (<1.2) Microbiology - Last 24 Hours (Table) 12/11/22 06:00 Blood Culture - Preliminary Blood 12/11/22 05:50 Blood Culture - Preliminary Blood
--- NOTE | 2022-12-15 16:40 | P.PN ---
Subjective Progress Note Date: 12/15/22 On follow-up seeing the patient and he feels about the same. Denies of any new neurological issues. Patient had a VAMSI today and is reported as no intracardiac thrombus. Normal left ventricle function. No evidence of shunting across the interatrial septum. Objective - Vital Signs Vital signs: Vital Signs Temp 98.0 F 12/15/22 14:46 Pulse 77 12/15/22 07:59 Resp 16 12/15/22 14:46 BP 131/74 12/15/22 14:46 Pulse Ox 96 12/15/22 14:46 FiO2 Intake & Output 12/14/22 12/15/22 12/15/22 18:59 06:59 18:59 Intake Total 480 20 695 Balance 480 20 695 Intake: IV 20 20 95 Invasive Line 2 20 20 20 Oral 460 600 Other: Voiding Method Urinal Urinal Urinal # Voids 2 1 2 - Exam GENERAL: The patient is lying in bed and is not in acute distress. NEUROLOGICAL: Higher mental function: The patient is awake, alert, oriented to self, place and time. Patient is following commands. [place] has mild aphasia (but he states this is abseline). No neglect. Cranial nerves: The pupils are round, equal and reactive to light and accommodation. Visual coffey are full to confrontation throughout. Extraocular movement is intact no nystagmus is noted. Facial sensation is normal to touch throughout. The facial strength is normal throughout. Hearing is normal bilaterally to hand rub. Tongue is midline and moved [id number] without any difficulty. No dysarthria is noted. Shoulder shrug is normal bilaterally. Motor: The strength is 5 over 5 throughout. Normal tone and bulk. Cerebellum: Normal finger to nose heel to cummins bilaterally. Sensation: Sensation is normal to touch throughout. Reflexes (right/left): 2+ throughout. Plantars are downgoing bilaterally. Some of the workup during his hospital visit consisted of: He has been hypotensive as low as in the 60s to 70s systolic and diastolic is a 30-40s--improved. White blood cell initially was 16.2 thousand and repeat is 15.3 and slightly neutrophilic.--resolved Initial plasm lactic acid and is 2.1 repeated is normalized. Lipid panel is triglycerides 287, cholesterol 211, LDLs 125, HDL is 28. TSH is 1.550 Phosphorus is 5.1 calcium is 9.8 ESR is 8. CRP is is 1.6 and normal is less than 1.0. Urine drug screen is positive for marijuana CT head w/o: It is reported as No evidence of acute intracranial pathology. I personally reviewed the CT of the head and I agree there is no acute or subacute ischemia there is no bleed. CTA head and neck is negative. CT angiography of the chest is reported as ascending aortic aneurysm without evidence of dissection, status post aortic valve replacement. Finding concern for bronchitis which may be due to infectious or inflammatory etiologies. No consolidation. 2-D echo was reported as left ventricular ejection fraction 55-60%. Mildly increased left ventricular wall thickness. Mildly right ventricle dilation. Ao rtic dilated of 5.1 cm MRI Brain is reported as scattered areas of microinfacrt as well as larger areas within the left occipital lobe and let inferior cerebellu. Correlate for embolic phenomenon. No abnormal postcontrast enhancement. VAMSI today and is reported as no intracardiac thrombus. Normal left ventricle function. No evidence of shunting across the interatrial septum. - Labs CBC & Chem 7: 12/12/22 04:38 12/12/22 04:38 Labs: Abnormal Lab Results - Last 24 Hours (Table) 12/15/22 Range/Units 07:07 PT 21.5 H (9.0-12.0) sec INR 2.2 H (<1.2) Microbiology - Last 24 Hours (Table) 12/11/22 06:00 Blood Culture - Preliminary Blood 12/11/22 05:50 Blood Culture - Preliminary Blood Assessment and Plan Assessment: This is a 52-year-old gentleman with history of aortic valve replacement on long-term Coumadin who presented because of feeling dizziness with fatigue, generalized weakness difficulty standing up and feeling lightheaded upon standing up and there is a concern that the patient came in confused slurring hi s speech. On presentation his INR was subtherapeutic at 1.8. Patient presented the hypotensive as low as 6670 systolic and diastolic 30s to 40s Acute ischemic stroke with scatter bilateral hemisphere, especially left occipital and left interior cerebellum (presented with lightheadedness with fat igue/generalized weakness with concern of speech difficulty and confusion). No IV tpa since outside window. Etiology of stroke seems cardioembolic. He has hx of aortic valve replaced and INR was subtherapeutic. CT of the head, CTA of the head and neck is negative. CT angiography of the chest is reported as bronchitis. Had dilated aortic root on 2D echo. VAMSI is negative for thrombus of shunting. Hypotension with leukocytosis. It was felt by cardiology and primary hypotensive was due to medication effect (antihypertensive). Rule out underlying sepsis. Acute kidney injury Dyslipidemia Hypertriglyceridemia History of aortic valve replacement on long-term Coumadin and INR subtherapeutic of 1.8 Chronic low back pain History of hypertension Plan: Patient is on Coumadin. He is on Lipitor 20mg qhs. Blood culture: no growth after 24 hours. 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 We'll defer that further management to the cardiology/cardiothoracic team if needed.. VAMSI today and is reported as no intracardiac thrombus. Normal left ventricle function. No evidence of shunting across the interatrial septum. CT lumbar spine is ordered since the patient stated that he is having low back pain but denies any new deficit. Ordered to rule out any significant stenosis. CT lumbar is reported as no evidence of fracture of the lumbar spine. L4-L5 disc herniation with broad-based disc bulge resulting in mild to moderate central canal stenosis. Bilateral facet arthropathy also demonstrated with minimal bilateral neural foraminal stenosis. Multilevel degenerative disc disease and facet arthropathy. Seems cardiology consulted orthopedic surgeon (Dr. Olivaers) for his low back pain. Cardiology is on board. Per telemetry no A-fib or flutter so far. Recommend an event monitor for 30 days or loop recorder placement. I ordered a day, antithrombin III, factor V Leiden, lupus anticoagulant, prothombin [id number], ESR, CRP, homocytein level. If work-up negative and no A-fib or flutter recommend rest of hypercoagulable work-up as outpatient. If negative consider hypercoagulable work-up. Every 4 hours neuro checks Cardiac monitoring PT and OT are consulted. We'll defer the rest of the medical management to primary team For DVT prophylaxis: On coumadin. Recommend patient to follow-up with neurologist as outpatient within 1-2 weeks. The plan was discussed with patient and primary team. Time with Patient: Less than 30
[2022-12-15] MEDS: WARFARIN 10 MG TAB PO SCH (17:31)
[2022-12-15] MEDS: ATORVASTATIN 20 MG TAB PO SCH (17:31)
[2022-12-15] MEDS ORDERED: WARFARIN 2.5 MG TAB PO ONE (18:00)
[2022-12-16] MEDS: METOPROLOL TARTRATE 25 MG TAB PO SCH (06:54)
[2022-12-16 08:29] VITALS: BP 126/74; RESP 18; TEMP 97.9
[2022-12-16] MEDS: lisinopriL 20 MG TAB PO SCH (08:39)
[2022-12-16 09:01] LABS: INR 3.1 (<1.2); Prothrombin Time 30.3 sec (9.0-12.0)
--- NOTE | 2022-12-16 10:27 | P.DS ---
Providers Date of admission: 12/11/22 05:29 Expected date of discharge: 12/16/22 Attending physician: Rigo Reeves MD Consults: 12/11/22 05:28 Consult Physician Routine Consulting Provider: Teri Aguero Consult Reason/Comments: syncop Do you want consulting provider notified?: Yes 12/11/22 13:50 Consult Physician Routine Consulting Provider: Migue Lee Consult Reason/Comments: slurred speech on admission, TIA? Do you want consulting provider notified?: Yes 12/12/22 08:04 Consult Physician Routine Consulting Provider: Kush Harvey Consult Reason/Comments: back and leg pain Do you want consulting provider notified?: Yes 12/13/22 17:32 Consult Physician Routine Consulting Provider: Evan Chávez Consult Reason/Comments: Embolic stroke, possible need for VAMSI? Do you want consulting provider notified?: Yes, Notify in am Primary care physician: Stated None Hospital Course: Patient is a 52-year-old male with a PMH of thoracic aortic aneurysm, status post aortic valve replacement on Lovenox, hypertension, and hyperlipidemia who presents to the emergency room for generalized weakness, slurred speech, and diaphoresis. The patient reports that he was in his usual state of health until he went to some family members house earlier in the evening with a noted that he was sweating. The patient then proceeded to go home but later in the night developed slurring of his speech, generalized fatigue, and blurry vision. He subsequently decided to come to the emergency room. CODE STROKE was activated upon arrival. Upon arrival, the patient's vitals were 96/60 with pulse 85 and SpO2 97% on room air with temperature 98.0F. The patient's subsequently vitals were BP 68/[address] angiogram thoracic aorta revealed an ascending aortic aneurysm 41 mm without dissection or rupture. CT angiogram abdomen and pelvis revealed hepatic steatosis but otherwise unremarkable. CT brain was unremarkable. EKG revealed sinus rhythm at 80 bpm with T-wave inversion in leads V4 to V6 as well as 2, 3, and aVF. Laboratory evaluation was remarkable for leukocytosis of 16.2, lactic acid 2.1, BUN 34, creatinine 2.17 (previously 0.8). 12/12 Patient was seen and examined. He reports no complaints. Worried about his bills. States he has slurred speech at baseline. BP 156/72, P 73, T 98.6F, 98% on RA. CBC shows Hg 11.3, Plt 132. INR 2.3. CMP Cl 112, BUN 25. Lipid panel T. Chol 211, TG 287, HDL 28.4, VLDV 57.4. TSH 1.55. Cortisol 14. Flu, RSV, COVID 19 negative. UDS + marijuana. Echo shows EF 55-60% with normal functioning prosthetic AV and aortic root dilated at 5.1 cm. Heparin drip discontinued. Blood culture preliminary negative. 12/13 Patient was seen and examined. He reports no complaints. INR is 2.3. Case was discussed with Yamilet JOHNSON who states Cardio has signed off on the patient. Case was discussed with Neurology who states patient is cleared for discharge after MRI brain is back, his symptoms were likely related to hypotension. Most recent BP 123/79 P 62, RR 20, T98.1F, 95% on RA. 12/14 Patient was seen and examined. No acute events overnight. No changes in clinical condition. MRI brain done yesterday shows scattered areas of micro- infarct as well as larger areas within the left occipital lobe and left inferior cerebellum concerning for embolic phenomenon. Case discussed with Yamilet JOHNSON, plans for VAMSI tomorrow. Case discussed with neurology, agreeable to the plan. His INR is 2.3. 12/15 Patient was seen and examined. Underwent VAMSI which did not show any vegetation or thrombus. Case was discussed extensively with Dr. Chávez, we have plans on starting him on a Heparin drip until his INR is between 2.5 and 3.5. Clinical condition unchanged. INR today is 2.2. 12/16 Patient was seen and examined. No acute events overnight. Patient has no complaints today. INR is 3.1 today. Heparin drip will be discontinued. Patient will need an event monitor but unfortunately that can not be obtained today. Case discussed with Dr. Chávez, plans to follow up outpatient for INR monitoring and event monitor. He underwent hypercoaguable workup including ATIII, Factor V leiden, Lupus, PT mutation which is pending. We will given him an appointment with Dr. Romo to follow up with those results. Case discussed with pharmacy, plans to increase his Coumadin dosing to 11 mg PO QD on discharge. He will be discharged home with Metoprolol 25 mg PO BID and Lisinopril 20 mg PO QD as well. He is advised to follow up with Neurology and Orthopedic surgery as well. We will refer him to Dr. Nuñez to establish primary care. Pertinent studies include CXR, CT brain, CT thoracic aorta, CTA head and neck, Echo, MRI brain. Pertinent procedures include VAMSI. General: non toxic, no distress, appears at stated age Derm: warm, dry Head: atraumatic, normocephalic, symmetric Eyes: EOMI, no lid lag, anicteric sclera Cardiovascular: S1S2 reg, no murmur Lungs: CTA bilateral, no rhonchi, no rales , no accessory muscle use Ext: no gross muscle atrophy, no edema, no contractures Neuro: no focal neuro deficits Psych: Alert, oriented, appropriate affect Discharge Diagnosis: Acute CVA Subtherapeutic INR SIRS, unclear etiology Resolved: Lactic acidosis, ALO, Hypotension This complex discharge took 35 minutes to complete. Patient Condition at Discharge: Stable Plan - Discharge Summary Discharge Rx Participant: Yes New Discharge Prescriptions: New Warfarin [Coumadin] 1 mg PO DAILY #30 tablet Metoprolol Tartrate [Lopressor] 25 mg PO BID-W/MEALS #60 tab lisinopriL [Zestril] 20 mg PO DAILY #30 tab Continue Simvastatin [Zocor] 40 mg PO DAILY@1800 Sertraline [Zoloft] 200 mg PO DAILY@1800 Warfarin [Coumadin] 10 mg PO DAILY@1800 #30 tab Discontinued Metoprolol Tartrate [Lopressor] 100 mg PO BID-W/MEALS hydroCHLOROthiazide 25 mg PO DAILY@1800 Enalapril [Vasotec] 20 mg PO DAILY@1800 Discharge Medication List Sertraline [Zoloft] 200 mg PO DAILY@1800 12/11/22 [History] Simvastatin [Zocor] 40 mg PO DAILY@1800 12/11/22 [History] Metoprolol Tartrate [Lopressor] 25 mg PO BID-W/MEALS #60 tab 12/16/22 [Rx] Warfarin [Coumadin] 1 mg PO DAILY #30 tablet 12/16/22 [Rx] Warfarin [Coumadin] 10 mg PO DAILY@1800 #30 tab 12/16/22 [Rx] lisinopriL [Zestril] 20 mg PO DAILY #30 tab 12/16/22 [Rx] Follow up Appointment(s)/Referral(s): Ramon Romo [STAFF PHYSICIAN] - 1 Week Heri Hernandez PAC [PHYSICIAN DIRECTOR FEDERAL] - 1 Week (Patient may follow-up with Heri Hernandez PA-C or Dr. Rolo Harvey at [facility] in 1 week following discharge. ) Pérez Nuñez MD [REFERRING] - 1-2 Days Dalton Rogers MD [Medical Doctor] - 1 Week None,Stated [Primary Care Provider] - 1-2 days Evan Chávez MD [STAFF PHYSICIAN] - 3 Days Activity/Diet/Wound Care/Special Instructions: Diet: Cardiac Follow up with your PCP within 1-2 days of discharge. Follow up with Cardiology Dr. Chávez within 3 days of discharge. You will need an event monitor when you follow up with him. You will also need to check your INR on a weekly basis to maintain it over 2.5 and 3.5. Follow up with Orthopedic surgery. Follow up with Neurology. Follow up with Hematology for results of your hypercoaguable workup. Take Warfarin 11 mg by mouth daily. DO NOT MISS A DOSE. Discharge Disposition: HOME SELF-CARE
--- NOTE | 2022-12-16 10:32 | PN ---
PROGRESS NOTE SUBJECTIVE: Reddy is a 52-year-old gentleman with history of aortic valve replacement with a mechanical valve, ascending aortic aneurysm, chronic back pain, who presented to the hospital with atypical chest pain, subtherapeutic anticoagulation and Neurology evaluated him and found that he had a prior CVA, for which I performed a transesophageal echo that did not reveal any cardiac source of thromboembolic phenomenon. At the moment, we are simply waiting on his INR becoming therapeutic in the date. Today, INR is 3.1. We can stop the IV heparin and discharge him home on his current medications. My plan at this stage is to perform a Lexiscan on him in the outpatient setup for further evaluation of the atypical chest pain. OBJECTIVE: GENERAL: Comfortable at rest. VITAL SIGNS: Stable. NECK: There is no jugular venous distention. Carotid upstroke is normal. There is no bruit. PULMONARY: Chest exam reveals good air entry bilaterally. CARDIAC: Heart exam reveals first and second heart sounds. Mechanical valve sound is heard. ABDOMEN: Soft. EXTREMITIES: Examination of extremities did not reveal any edema. Peripheral pulses are felt. ASSESSMENT: 1. Status post mechanical aortic valve replacement. 2. Atypical chest pain. 3. Chronic musculoskeletal pain. 4. Hypertension. 5. Ascending aortic aneurysm. 6. Dyslipidemia. PLAN: I will stop the IV heparin at this time. Continue the Coumadin. He needs an INR next week, and Coumadin doses will have to be further adjusted. The patient was supposedly taking 10 mg of Coumadin daily at home. He received 10 mg of Coumadin daily here and his INR had become therapeutic. I am not quite sure if he was missing his Coumadin dose at home, but this is what we are going to send him home on and follow the INR as an outpatient. MMODL / IJN: [id number] /
--- NOTE | 2022-12-16 11:25 | P.PN ---
Subjective Progress Note Date: 12/16/22 On follow-up seen the patient and he feels he is back to baseline. Denies of any new neurological issues. Objective - Vital Signs Vital signs: Vital Signs Temp 97.9 F 12/16/22 08:28 Pulse 77 12/15/22 07:59 Resp 18 12/16/22 08:28 BP 126/74 12/16/22 08:28 Pulse Ox 95 12/16/22 08:58 FiO2 Intake & Output 12/15/22 12/16/22 12/16/22 18:59 06:59 18:59 Intake Total 875 1103.833 348.923 Balance 875 1103.833 348.923 Intake: IV 95 Invasive Line 2 20 Intake, IV Titration 101.833 108.923 Amount Heparin Sod,Pork in 0.45% 101.833 108.923 NaCl 25,000 unit In 0.45 % NaCl 1 250ml.bag @ 8. 013 UNITS/KG/HR 10 mls/hr IV .Q24H [facility] Rx#: [id number] Oral 780 1002 240 Other: Voiding Method Urinal Toilet Toilet # Voids 2 1 - Exam GENERAL: The patient is sitting at side of bed and is not in acute distress. NEUROLOGICAL: Higher mental function: The patient is awake, alert, oriented to self, place and time. Patient is following commands. [place] has mild aphasia (but he states this is abseline). No neglect. Cranial nerves: The pupils are round, equal and reactive to light and accommodation. Visual coffey are full to confrontation throughout. Extraocular movement is intact no nystagmus is noted. Facial sensation is normal to touch throughout. The facial strength is normal throughout. Hearing is normal bilaterally to hand rub. Tongue is midline and moved [id number] without any difficulty. No dysarthria is noted. Shoulder shrug is normal bilaterally. Motor: The strength is 5 over 5 throughout. Normal tone and bulk. Cerebellum: Normal finger to nose heel to cummins bilaterally. Sensation: Sensation is normal to touch throughout. Reflexes (right/left): 2+ throughout. Plantars are downgoing bilaterally. Some of the workup during his hospital visit consisted of: He has been hypotensive as low as in the 60s to 70s systolic and diastolic is a 30-40s--improved. White blood cell initially was 16.2 thousand and repeat is 15.3 and slightly neutrophilic.--resolved Initial plasm lactic acid and is 2.1 repeated is normalized. Lipid panel is triglycerides 287, cholesterol 211, LDLs 125, HDL is 28. TSH is 1.550 Phosphorus is 5.1 calcium is 9.8 ESR is 8. CRP is is 1.6 and normal is less than 1.0. Urine drug screen is positive for marijuana CT head w/o: It is reported as No evidence of acute intracranial pathology. I personally reviewed the CT of the head and I agree there is no acute or subacute ischemia there is no bleed. CTA head and neck is negative. CT angiography of the chest is reported as ascending aortic aneurysm without evidence of dissection, status post aortic valve replacement. Finding concern for bronchitis which may be due to infectious or inflammatory etiologies. No consolidation. 2-D echo was reported as left ventricular ejection fraction 55-60%. Mildly increased left ventricular wall thickness. Mildly right ventricle dilation. Aortic dilated of 5.1 cm MRI Brain is reported as scattered areas of microinfacrt as well as larger areas within the left occipital lobe and let inferior cerebellu. Correlate for em bolic phenomenon. No abnormal postcontrast enhancement. VAMSI today and is reported as no intracardiac thrombus. Normal left ventricle function. No evidence of shunting across the interatrial septum. ESR is 8 and was performed twice on the 12/11 as well as 12/12. A knee is negative - Labs CBC & Chem 7: 12/12/22 04:38 12/12/22 04:38 Labs: Abnormal Lab Results - Last 24 Hours (Table) 12/15/22 12/16/22 12/16/22 Range/Units 20:04 07:55 07:55 PT 30.3 H (9.0-12.0) sec INR 3.1 H (<1.2) APTT 39.0 H 42.6 H (22.0-30.0) sec Assessment and Plan Assessment: This is a 52-year-old gentleman with history of aortic valve replacement on long-term Coumadin who presented because of feeling dizziness with fatigue, generalized weakness difficulty standing up and feeling lightheaded upon standing up and there is a concern that the patient came in confused slurring his speech. On presentation his INR was subtherapeutic at 1.8. Patient presented the hypotensive as low as 6670 systolic and diastolic 30s to 40s Acute ischemic stroke with scatter bilateral hemisphere, especially left occipital and left interior cerebellum (presented with lightheadedness with fatigue/generalized weakness with concern of speech difficulty and confusion). No IV tpa since outside window. Etiology of stroke seems cardioembolic. He has hx of aortic valve replaced and INR was subtherapeutic. CT of the head, CTA of the head and neck is negative. CT angiography of the chest is reported as bronchitis. Had dilated aortic root on 2D echo. VAMSI is negative for thrombus of shunting. Hypotension with leukocytosis. It was felt by cardiology and primary hypotensive was due to medication effect (antihypertensive). Rule out underlying sepsis. Acute kidney injury Dyslipidemia Hypertriglyceridemia History of aortic valve replacement on long-term Coumadin and INR subtherapeutic of 1.8 Chronic low back pain History of hypertension Plan: Patient is on Coumadin. The patient did not fail Coumadin especially since was subtherapeutic. I'll defer the use of antiplatelets to the primary and cardiology team. He is on Lipitor 20mg qhs. Blood culture: no growth after 24 hours. 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 We'll defer that further management to the cardiology/cardiothoracic team if needed.. VAMSI is reported as no intracardiac thrombus. Normal left ventricle function. No evidence of shunting across the interatrial septum. CT lumbar spine is ordered since the patient stated that he is having low back pain but denies any new deficit. Ordered to rule out any significant stenosis. CT lumbar is reported as no evidence of fracture of the lumbar spine. L4-L5 disc herniation with broad-based disc bulge resulting in mild to moderate central canal stenosis. Bilateral facet arthropathy also demonstrated with minimal bilateral neural foraminal stenosis. Multilevel degenerative disc disease and facet arthropathy. Seems cardiology consulted orthopedic surgeon (Dr. Olivares) for his low back pain. Cardiology is on board. Per telemetry no A-fib or flutter so far. Recommend an event monitor for 30 days or loop recorder placement. I spoke with primary and he will get it as outpatient. Pending antithrombin III, factor V Leiden, lupus anticoagulant, prothombin [id number], homocytein level. If work-up negative and no A-fib or flutter recommend rest of hypercoagulable work-up as outpatient and follow-up with hematology team. So far ESR, ARI are negative. CRP is 1.6 (normal is <1.0) If negative consider hypercoagulable work-up. Every 4 hours neuro checks Cardiac monitoring PT and OT are consulted. We'll defer the rest of the medical management to primary team For DVT prophylaxis: On coumadin. Recommend patient to follow-up with neurologist as outpatient within 1-2 weeks. The plan was discussed with patient and primary team. Time with Patient: Less than 30
[2022-12-18 15:22] LABS: APTT 59 Sec(s) (<43); APTT 1:1 Mix 39 Sec(s) (<43); DRVVT 1:1 Mix 43 Sec(s) (<44); Dilute Russell Viper Venom 70 Sec(s) (<44)
[2022-12-18 15:43] LABS: Anti-Thrombin III Antigen 104 % (80 - 120)
== END 2022-12-16 12:39 | disposition home or self-care (01) | DRG 65 ==
LOC: EC 01:00 → 3SCARD 05:29
PROVIDERS: ADMIT Internal Medicine; ATTEND Internal Medicine
PROC: B24BZZ4 Ultrasonography of Heart with Aorta, Transesophageal (ICD-10-PCS; principal; 2022-12-15 07:30)
DX: I63.532 Cerebral infarction due to unspecified occlusion or stenosis of left posterior cerebral artery (principal); E87.20 Acidosis, unspecified; N17.9 Acute kidney failure, unspecified; R65.10 Systemic inflammatory response syndrome (SIRS) of non-infectious origin without acute organ dysfunction; R47.01 Aphasia; R29.2 Abnormal reflex; I11.9 Hypertensive heart disease without heart failure; K76.0 Fatty (change of) liver, not elsewhere classified; I71.21 Aneurysm of the ascending aorta, without rupture; I95.2 Hypotension due to drugs; I08.3 Combined rheumatic disorders of mitral, aortic and tricuspid valves; M46.06 Spinal enthesopathy, lumbar region; M46.05 Spinal enthesopathy, thoracolumbar region; E78.00 Pure hypercholesterolemia, unspecified; R47.1 Dysarthria and anarthria; R61 Generalized hyperhidrosis; R29.702 NIHSS score 2; R00.1 Bradycardia, unspecified; K21.9 Gastro-esophageal reflux disease without esophagitis; M19.90 Unspecified osteoarthritis, unspecified site; M51.16 Intervertebral disc disorders with radiculopathy, lumbar region; M48.062 Spinal stenosis, lumbar region with neurogenic claudication; M16.11 Unilateral primary osteoarthritis, right hip; G89.29 Other chronic pain; Z95.2 Presence of prosthetic heart valve; J40 Bronchitis, not specified as acute or chronic; E78.1 Pure hyperglyceridemia; T46.5X5A Adverse effect of other antihypertensive drugs, initial encounter; M47.26 Other spondylosis with radiculopathy, lumbar region; M79.18 Myalgia, other site; H53.8 Other visual disturbances; R42 Dizziness and giddiness; R25.8 Other abnormal involuntary movements; R79.1 Abnormal coagulation profile; Z20.822 Contact with and (suspected) exposure to COVID-19; Z96.642 Presence of left artificial hip joint; Z88.0 Allergy status to penicillin; Z79.899 Other long term (current) drug therapy; Z79.01 Long term (current) use of anticoagulants; Z86.73 Personal history of transient ischemic attack (TIA), and cerebral infarction without residual deficits; Z79.82 Long term (current) use of aspirin
CPT/HCPCS: 36415; 70450; 70496; 70498; 70553; 71045; 71275; 72131; 74174; 80053; 80061; 80306; 81001; 81240; 81241; 82533; 83090; 83605; 83735; 83880; 84100; 84443; 84484; 85025; 85027; 85300; 85301; 85610; 85613; 85652; 85730; 85732; 86038; 86140; 87040; 87636; 93005; 93306; 93312; 93320; 93325; 93922; 94760; 96361; 96365; 96366; 96372; 96375; 99291